=== PATIENT | female | born 1960 | race Caucasian/White ===

== ENCOUNTER 2018-02-10 15:34 | Inpatient (IN) ==
--- NOTE | 2018-02-10 16:05 | ED ---
HPI General Chief complaint: Skin/Abscess/Foreign Body Stated complaint: Lft hand swollen x3 days Time Seen by Provider: 02/10/18 15:48 Source: patient Mode of arrival: ambulatory Limitations: no limitations History of Present Illness HPI narrative: 57-year-old female complains of pain swelling and redness in the right hand. Patient status post trigger finger surgery and right elbow surgery on January [address] Hughes. Patient started having redness swelling and tenderness on the right hand 2 days ago. Patient states the redness swelling get worse and extended to the dorsal aspect the right hand since then. Patient was seen by Dr. Hughes this afternoon and advised to go to the emergency room to be admitted and have an MRI done and IV antibiotic. Patient has history of hypothyroidism and status post CVA. Patient is on Plavix. Last dose of Plavix was yesterday. complaint: Reports abscess/boil Onset (ago): day(s) Tetanus Immunization: <5 Years Location: Reports R hand Severity: moderate Severity scale (1-10): 7 Quality: Reports sharp Pain Consistency: constant Relieving factors: none Exacerbating factors: none Context: Reports none Associated symptoms: Reports denies other symptoms Treatments prior to arrival: Reports none Related Data Home Medications Medication Instructions Recorded Confirmed citalopram 20 mg PO DAILY 02/10/18 02/10/18 clopidogrel 75 mg PO DAILY 02/10/18 02/10/18 gabapentin 300 mg PO TID 02/10/18 02/10/18 levothyroxine 75 mcg PO DAILY 02/10/18 02/10/18 pantoprazole 20 mg PO DAILY 02/10/18 02/10/18 trazodone 100 mg PO DAILY 02/10/18 02/10/18 Allergies Allergy/AdvReac Type Severity Reaction Status Date / Time aspirin Allergy Severe CAUSES A Unverified 02/10/18 15:42 DEEP SLEEP codeine Allergy Severe CAUSES TO Unverified 02/10/18 15:42 DEEP SLEEP penicillin G Allergy Severe Anaphylaxis Unverified 02/10/18 15:42 Review of Systems ROS: all other systems reviewed are negative [facility] Medical History Medical History Fibromyalgia (Acute) GERD (gastroesophageal reflux disease) (Acute) History of CVA (cerebrovascular accident) (Acute) History of trigger finger (Acute) Hx of hysterectomy (Acute) Hypothyroid (Acute) Surgical History Surgical History Hx of section (Acute) Hx of decompression of ulnar nerve (Acute) Social History Social History Substance History: No History of Abuse Smoking Status: Former smoker How Often Do You Have a Drink Containing Alcohol: 2 to 4 times a month Recent Travel in [facility] within the Last 8 Weeks: No Recent Out of Country Travel within the Last 8 Weeks: No Immunization History Tetanus Immunization: <5 Years Exam Narrative Exam Narrative: GENERAL: Well-nourished, well-developed patient. SKIN: Focused skin assessment warm/dry. HEAD: Normocephalic. EYES: No scleral icterus. No injection or drainage. NECK: Supple, trachea midline. No JVD or lymphadenopathy. CARDIOVASCULAR: Regular rate and rhythm without murmurs, gallops, or rubs. RESPIRATORY: Breath sounds equal bilaterally. No accessory muscle use. GASTROINTESTINAL: Abdomen soft, non-tender, nondistended. MUSCULOSKELETAL: No cyanosis, or edema. BACK: Nontender without obvious deformity. No CVA tenderness. Patient has redness swelling tenderness from aspect the hand and dorsal aspect of the right hand. Limited range of motion of the fingers secondary to pain. No induration noted. No discharge. Course Initial Documented Vital Signs Temperature 97.8 F 02/10/18 15:36 Pulse Rate 74 02/10/18 15:36 Respiratory Rate 18 02/10/18 15:36 Blood Pressure 166/85 H 02/10/18 15:36 Pulse Oximetry 94 L 02/10/18 15:36 Last Documented Vital Signs Temperature 97.8 F 02/10/18 15:36 Pulse Rate 72 02/10/18 17:35 Respiratory Rate 16 02/10/18 17:35 Blood Pressure 119/81 02/10/18 17:35 Pulse Oximetry 98 02/10/18 17:35 Sign Out Sign Out Data: Patient Sign Out occurred on 02/10/18 at 16:39. Patient's care was discussed, and care was transferred from Eyad Gay to Sincere Arrington MD. Sign Out Comment: Patient with infected hand. Status post hand surgery a month ago. Patient is signed out to incoming physician. Last updated by Eyad Gay MD at 02/10/18 16:10 Post-Handoff Eval: This case is checked out to me by Dr. Hardy at 4 PM. I have evaluated the patient. She has for pain medicine and we gave her a dose of morphine and Zofran. Her labs are reviewed C-reactive protein a bit elevated but general blood counts are okay. MRI has been done but still not read. I discussed it with the hand surgeon and primary physician Dr. Antony Jones. Dr. Antony Jones will admit. Medical Decision Making MDM Narrative Medical decision making narrative: 57-year-old female with redness swelling tenderness right hand. Status post right hand surgery a month ago. Medical Screen Exam Complete: Yes Emergency Medical Condition: Yes Differential Diagnosis Differential Diagnosis: Differential diagnosis including cellulitis, abscess, tenosynovitis. Lab Data Result diagrams: 02/10/18 16:00 02/10/18 16:40 Lab Results 02/10/18 02/10/18 02/10/18 Range/Units 16:00 16:00 16:10 CBC w Diff Auto diff final WBC 10.2 (4.0-11.0) th/mm3 RBC 4.51 (4.00-5.30) mil/mm3 Hgb 14.1 (11.6-15.3) gm/dL Hct 41.4 (35.0-46.0) % MCV 91.7 (80.0-100.0) fL MCH 31.1 (27.0-34.0) pg MCHC 34.0 (32.0-36.0) % RDW 12.2 (11.6-17.2) % Plt Count 230 (150-450) th/mm3 MPV 7.7 (7.0-11.0) fL Neut % (Auto) 78.5 H (16.0-70.0) % Lymph % (Auto) 15.4 (9.0-44.0) % [place] % (Auto) 4.2 (0.0-8.0) % Eos % (Auto) 1.0 (0.0-4.0) % Baso % (Auto) 0.9 (0.0-2.0) % Neut # (Auto) 8.0 H (1.8-7.7) th/mm3 Lymph # (Auto) 1.6 (1.0-4.8) th/mm3 [place] # (Auto) 0.4 (0.0-0.9) th/mm3 Eos # (Auto) 0.1 (0.0-0.4) th/mm3 Baso # (Auto) 0.1 (0.0-0.2) th/mm3 WBC Differential . Differential Comment . PT 10.0 (9.8-11.6) sec INR 1.0 Ratio APTT 29.2 (23.4-31.7) sec Sodium (136-145) meq/L Potassium (3.5-5.1) meq/L Chloride (98-107) meq/L Carbon Dioxide (21.0-32.0) meq/L Anion Gap (5-15) meq/L BUN (7-18) mg/dL Creatinine (0.50-1.00) mg/dL Estimated GFR (>89) mL/min Random Glucose (74-106) mg/dL Calcium (8.5-10.1) mg/dL C-Reactive Protein (0.00-0.30) mg/dL Urine Color Yellow (Yellw/Straw) Urine Clarity Cloudy H (Clear) Urine pH 6.5 (5.0-8.5) Ur Specific [place] 1.015 (1.002-1.035) Urine Protein Negative (Neg-Trace) mg/dL Urine Glucose (UA) Negative (Negative) mg/dL Urine Ketones Trace H (Negative) mg/dL Urine Occult Blood Small H (Negative) Urine Nitrate Negative (Negative) Urine Bilirubin Negative (Negative) Urine Urobilinogen 1.0 (Less than 2) mg/dL Ur Leukocyte Esterase Large H (Negative) Urine RBC 4-15 H (0-3) /hpf Urine WBC 9-20 H (0-5) /hpf Ur Squamous Epith Cells 0-5 (0-5) /hpf Amorphous Sediment Few H (None) /hpf Urine Bacteria Moderate H (None) /hpf Urine Mucus Few H (Occasional) /lpf Micro UA Comment Cath-culture ind Ur Microscopic Review Microscopic reviewed Urine Culture Comments Cath-cult indicated 02/10/18 02/10/18 Range/Units 16:40 16:40 CBC w Diff WBC (4.0-11.0) th/mm3 RBC (4.00-5.30) mil/mm3 Hgb (11.6-15.3) gm/dL Hct (35.0-46.0) % MCV (80.0-100.0) fL MCH (27.0-34.0) pg MCHC (32.0-36.0) % RDW (11.6-17.2) % Plt Count (150-450) th/mm3 MPV (7.0-11.0) fL Neut % (Auto) (16.0-70.0) % Lymph % (Auto) (9.0-44.0) % [place] % (Auto) (0.0-8.0) % Eos % (Auto) (0.0-4.0) % Baso % (Auto) (0.0-2.0) % Neut # (Auto) (1.8-7.7) th/mm3 Lymph # (Auto) (1.0-4.8) th/mm3 [place] # (Auto) (0.0-0.9) th/mm3 Eos # (Auto) (0.0-0.4) th/mm3 Baso # (Auto) (0.0-0.2) th/mm3 WBC Differential Differential Comment PT (9.8-11.6) sec INR Ratio APTT (23.4-31.7) sec Sodium 141 (136-145) meq/L Potassium 3.6 (3.5-5.1) meq/L Chloride 111 H (98-107) meq/L Carbon Dioxide 23.8 (21.0-32.0) meq/L Anion Gap 6 (5-15) meq/L BUN 8 (7-18) mg/dL Creatinine 0.71 (0.50-1.00) mg/dL Estimated GFR 85 L (>89) mL/min Random Glucose 87 (74-106) mg/dL Calcium 8.0 L (8.5-10.1) mg/dL C-Reactive Protein 1.48 H (0.00-0.30) mg/dL Urine Color (Yellw/Straw) Urine Clarity (Clear) Urine pH (5.0-8.5) Ur Specific [place] (1.002-1.035) Urine Protein (Neg-Trace) mg/dL Urine Glucose (UA) (Negative) mg/dL Urine Ketones (Negative) mg/dL Urine Occult Blood (Negative) Urine Nitrate (Negative) Urine Bilirubin (Negative) Urine Urobilinogen (Less than 2) mg/dL Ur Leukocyte Esterase (Negative) Urine RBC (0-3) /hpf Urine WBC (0-5) /hpf Ur Squamous Epith Cells (0-5) /hpf Amorphous Sediment (None) /hpf Urine Bacteria (None) /hpf Urine Mucus (Occasional) /lpf Micro UA Comment Ur Microscopic Review Urine Culture Comments Discharge Plan Physicians Team ED Provider: Sincere Arrington Primary Care Provider: Nidia Edward Rxs /Orders / Referrals /Forms Prescriptions: No Action clopidogrel 75 mg Tablet 75 mg PO DAILY RF: 0 pantoprazole 20 mg Tablet,Delayed Release (Dr/Ec) 20 mg PO DAILY RF: 0 levothyroxine 75 mcg Tablet 75 mcg PO DAILY RF: 0 citalopram 20 mg Tablet 20 mg PO DAILY RF: 0 trazodone 100 mg Tablet 100 mg PO DAILY RF: 0 gabapentin 300 mg Capsule 300 mg PO TID RF: 0 Discharge Interventions Interventions: Vital Signs Last Done: 02/10/18 17:35 Status ED Status: Admitted Patient
[2018-02-10 16:09] LABS: Baso # (Auto) 0.1 th/mm3 (0.0-0.2); Baso % (Auto) 0.9 % (0.0-2.0); Eos # (Auto) 0.1 th/mm3 (0.0-0.4); Hematocrit 41.4 % (35.0-46.0); Hemoglobin 14.1 gm/dL (11.6-15.3); Lymph # (Auto) 1.6 th/mm3 (1.0-4.8); Lymph % (Auto) 15.4 % (9.0-44.0); Mean Corpuscular Hemoglobin 31.1 pg (27.0-34.0); Mean Corpuscular Volume 91.7 fL (80.0-100.0); Mean Platelet Volume 7.7 fL (7.0-11.0); Mono # (Auto) 0.4 th/mm3 (0.0-0.9); Mono % (Auto) 4.2 % (0.0-8.0); Neut % (Auto) 78.5 % (16.0-70.0); Platelet Count 230 th/mm3 (150-450); Red Blood Count 4.51 mil/mm3 (4.00-5.30); Red Cell Distribution Width 12.2 % (11.6-17.2); White Blood Count 10.2 th/mm3 (4.0-11.0)
[2018-02-10 16:15] LABS: Bilirubin,Urine Negative (Negative); Clarity,Urine Cloudy (Clear); Color,Urine Yellow (Yellw/Straw); Glucose,Urine (UA) Negative (Negative); Leukocyte Esterase,Urine Large (Negative); Nitrite,Urine Negative (Negative); PH,Urine 6.5 (5.0-8.5); Specific Gravity,Urine 1.015 (1.002-1.035)
[2018-02-10 16:22] LABS: Amorphous Sediment,Urine Few /hpf; Bacteria,Urine Moderate /hpf; Mucus,Urine Few /lpf (Occasional); Squamous Epithelial Cell,Urine 0-5 /hpf (0-5)
[2018-02-10 16:22] LABS: Activated Partial Thrombo Time 29.2 sec (23.4-31.7)
[2018-02-10 17:07] LABS: Carbon Dioxide 23.8 meq/L (21.0-32.0); Potassium 3.6 meq/L (3.5-5.1)
[2018-02-10] MEDS ORDERED: Gadobutrol PF 10 MMOL/10 ML Vial (for RAD) IV.SIG ONE (17:27)
[2018-02-10] MEDS ORDERED: Morphine Inj 4 MG/ML Vial IV.PUSH ONE (17:58)
--- NOTE | 2018-02-10 19:11 | MR ---
EXAM DATE: 02/10/2018 5:34 PM EST AGE/SEX: 57 years / Female INDICATIONS: . Right hand 2-4 MCPJ swelling and redness post trigger finger release on January 14. CLINICAL DATA: This is the patient's initial encounter. Patient reports that signs and symptoms have been present for 3 weeks and indicates a pain score of 7/10. MEDICAL/SURGICAL HISTORY: Hypothyroidism. section. Hysterectomy. trigger finger relea se, ulnar nerve surgery. COMPARISON: No prior exams available for comparison. TECHNIQUE: Multiplanar, multisequence MRI examination was performed without contrast and after the i ntravenous administration of 10 ml Gadavist (gadobutrol) contrast as a single exam dose. FINDINGS: The osseous structures of the hand are normal alignment and there is normal signal in the marrow of t he metacarpal and phalangeal bones. There is a focal fluid collection along the palm are aspect of the flexor tendon of the third digit m easuring 8 x 4 mm, located anterior to the metacarpal phalangeal joint. There is no enhancement withi n this fluid collection. There is mild enhancement along the palmar aspect of the tendon sheath of th e third digit flexor tendon as well. The soft tissues about the tendon sheath of the second and fourt h digit is normal without focal thickening or fluid. There is some mild induration of the soft tissue s of the palm are third and fourth digits with some mild enhancement, characteristic of postsurgical changes. CONCLUSION: 1. 8 x 4 mm fluid collection adjacent to the palmar aspect of the flexor tendon sheath of the third digit at the level of the MCP joint. 2. Mild edema about the palm of the second through fourth digit, expected postsurgical findings. Electronically signed by: Demar Pascual MD 02/10/2018 7:09 PM EST
[2018-02-10] MEDS ORDERED: Vancomycin Consult Pharmacy OTHER PRN (19:26)
--- NOTE | 2018-02-10 19:45 | P.HP ---
History of Present Illness Service: [facility] hospitalist service Primary Care Physician: Nidia Edward MD Chief Complaint: Right hand pain and swelling History of Present Illness: 57-year-old white female who had a trigger finger release on her right hand involving the middle finger at the MCP joint on January [address] Hughes. She was doing well until about 2 days ago when she started getting swelling and tenderness on the volar aspect of the hand at the base of the third finger that has increased since then the redness has extended over to the dorsal aspect of the right hand also near the second and third finger base. She was seen by Dr. Hughes this afternoon and advised to go the emergency room for admission for IV antibiotic therapy and an MRI of the hand. She is admitted to the [facility] hospitalist service with Dr. Hughes to consult. Medical history: Fibromyalgia Hypothyroidism Depression Gastroesophageal reflux disease Prior history of stroke about 10 years ago No heart disease, diabetes mellitus, liver disease, kidney disease, peptic ulcer disease, colon disease. She was treated for hypertension until about 5 months ago she was taken off of blood pressure medicine after she had lost about 30 pounds. No lung disease Surgical history: She had the right middle finger trigger release on 01/14/2018 of the right hand She had a right ulnar nerve decompression by Dr. Hughes on 01/14/2019 x3 BETO and BSO allergies aspirin, codeine, penicillin G (anaphylaxis) Medications: Citalopram 20 mg daily Clopidogrel 75 mg daily Gabapentin 300 mg Levothyroxine 75 mcg daily Pantoprazole 20 mg daily Trazodone 100 mg at bedtime for sleep Family history: Her mother is still living at 85 and has hypothyroidism Her dad at 74 he had COPD and congestive heart failure Social history: She quit smoking about 10 years ago and smoked only a pack a week times 15 years. 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 This includes certification that hospital inpatient services are reasonable and necessary and in the case of services not specified as inpatient-only under 42 CFR 419.22(n), that they are appropriately provided as inpatient services in accordance to with the 2-midnight benchmark under 43 CFR 412.3(e) Review of Systems Review of systems: General: No fever, chills, sweats. HEENT: No sore throat, runny nose, earache. Cardiovascular: No chest pain, heart palpitations, shortness of breath, orthopnea. Pulmonary: No cough, shortness of breath, hemoptysis, pleuritic chest pain Gastrointestinal: No nausea, vomiting, abdominal pain, heartburn, indigestion, diarrhea, constipation, melena, rectal bleeding. : No dysuria, hematuria, urgency, frequency, incontinence. Musculoskeletal: Negative Psychiatry: No significant anxiety or depression Extremities: She has had the swelling, redness and pain of the right hand as mentioned. Dermatology: No rash or itching Neuro: No headache, confusion, motor weakness, PMFSH - History History Provided By: Patient - Medical History Medical History: Medical History (Last Reviewed 02/10/18 @ 16:02 by Eyad Gay MD) Fibromyalgia GERD (gastroesophageal reflux disease) History of CVA (cerebrovascular accident) History of trigger finger Hx of hysterectomy Hypothyroid - Surgical History Surgical History: Surgical History (Last Reviewed 02/10/18 @ 16:02 by Eyad aGy MD) Hx of section Hx of decompression of ulnar nerve - Tobacco History Smoking Status: Former smoker - Alcohol History How Often Do You Have a Drink Containing Alcohol: 2 to 4 times a month - Substance Use History Substance History: No History of Abuse - Travel History Recent Travel in the [place] Within the Last 8 Weeks: No Recent Travel Out of the Country Within the Last 8 Weeks: No - Immunization History Tetanus Immunization: <5 Years Medications and Allergies Active Medications: Active Medications Citalopram Hydrobromide (Celexa) 20 mg PO DAILY KEVIN Clopidogrel Bisulfate (Plavix) 75 mg PO DAILY KEVIN Gabapentin (Neurontin) 300 mg PO TID KEVIN Levothyroxine Sodium (Synthroid) 75 mcg PO DAILY KEVIN Pantoprazole Sodium (Protonix) 20 mg PO DAILY KEVIN Pharmacy Profile Note (Vancomycin Consult Pharmacy) 1 each OTHER UNSCH PRN PRN Reason: Pharmacy to dose Trazodone HCl (Desyrel) 100 mg PO DAILY KEVIN Allergies Allergy/AdvReac Type Severity Reaction Status Date / Time aspirin Allergy Severe CAUSES A Unverified 02/10/18 15:42 DEEP SLEEP codeine Allergy Severe CAUSES TO Unverified 02/10/18 15:42 DEEP SLEEP penicillin G Allergy Severe Anaphylaxis Unverified 02/10/18 15:42 Home Medications Medication Instructions Recorded Confirmed Type citalopram 20 mg PO DAILY 02/10/18 02/10/18 History clopidogrel 75 mg PO DAILY 02/10/18 02/10/18 History gabapentin 300 mg PO TID 02/10/18 02/10/18 History levothyroxine 75 mcg PO DAILY 02/10/18 02/10/18 History pantoprazole 20 mg PO DAILY 02/10/18 02/10/18 History trazodone 100 mg PO DAILY 02/10/18 02/10/18 History Exam Vital signs: Vital Signs 02/10/18 15:36 02/10/18 17:35 Temperature 97.8 F Pulse Rate 74 72 Respiratory Rate 18 16 Blood Pressure 166/85 H 119/81 Pulse Oximetry 94 L 98 Intake & Output 02/10/18 02/10/18 02/11/18 06:59 18:59 06:59 Weight 108.2 kg Narrative: Physical exam: This is a pleasant pleasant white female in no distress. HEENT: Pupils equal, EOMs intact, sclera nonicteric, mouth without lesions, TMs intact, nose without lesions Neck: No JVD, neck is supple, no carotid bruit Heart: Regular rate and rhythm without murmurs or gallops Lungs: Clear to auscultation Abdomen: Soft, nontender, no masses, no organomegaly Extremities: No edema, pulses palpated and 2 + in the feet, no calf tenderness. She has some tenderness, swelling, and redness of the right hand on the volar aspect at the base of the second third and fourth fingers and also some redness overlying dorsal aspect of the MCP joint region of the second and third finger of the right hand as well. There is discomfort with motion of her second, third , and fourth fingers of the right hand Skin: Without lesions or rash Neuro: Alert, oriented, normal motor exam, sensation intact, cranial nerves intact Results - Labs CBC & Chem 7: 02/10/18 16:00 02/10/18 16:40 Labs: Laboratory Results - last 24 hr 02/10/18 02/10/18 02/10/18 16:00 16:00 16:10 CBC w Diff Auto diff final WBC 10.2 RBC 4.51 Hgb 14.1 Hct 41.4 MCV 91.7 MCH 31.1 MCHC 34.0 RDW 12.2 Plt Count 230 MPV 7.7 Neut % (Auto) 78.5 H Lymph % (Auto) 15.4 [place] % (Auto) 4.2 Eos % (Auto) 1.0 Baso % (Auto) 0.9 Neut # (Auto) 8.0 H Lymph # (Auto) 1.6 [place] # (Auto) 0.4 Eos # (Auto) 0.1 Baso # (Auto) 0.1 WBC Differential . Differential Comment . PT 10.0 INR 1.0 APTT 29.2 Sodium Potassium Chloride Carbon Dioxide Anion Gap BUN Creatinine Estimated GFR Random Glucose Calcium C-Reactive Protein Urine Color Yellow Urine Clarity Cloudy H Urine pH 6.5 Ur Specific [place] 1.015 Urine Protein Negative Urine Glucose (UA) Negative Urine Ketones Trace H Urine Occult Blood Small H Urine Nitrate Negative Urine Bilirubin Negative Urine Urobilinogen 1.0 Ur Leukocyte Esterase Large H Urine RBC 4-15 H Urine WBC 9-20 H Ur Squamous Epith Cells 0-5 Amorphous Sediment Few H Urine Bacteria Moderate H Urine Mucus Few H Micro UA Comment Cath-culture ind Ur Microscopic Review Microscopic reviewed Urine Culture Comments Cath-cult indicated 02/10/18 02/10/18 16:40 16:40 CBC w Diff WBC RBC Hgb Hct MCV MCH MCHC RDW Plt Count MPV Neut % (Auto) Lymph % (Auto) [place] % (Auto) Eos % (Auto) Baso % (Auto) Neut # (Auto) Lymph # (Auto) [place] # (Auto) Eos # (Auto) Baso # (Auto) WBC Differential Differential Comment PT INR APTT Sodium 141 Potassium 3.6 Chloride 111 H Carbon Dioxide 23.8 Anion Gap 6 BUN 8 Creatinine 0.71 Estimated GFR 85 L Random Glucose 87 Calcium 8.0 L C-Reactive Protein 1.48 H Urine Color Urine Clarity Urine pH Ur Specific [place] Urine Protein Urine Glucose (UA) Urine Ketones Urine Occult Blood Urine Nitrate Urine Bilirubin Urine Urobilinogen Ur Leukocyte Esterase Urine RBC Urine WBC Ur Squamous Epith Cells Amorphous Sediment Urine Bacteria Urine Mucus Micro UA Comment Ur Microscopic Review Urine Culture Comments - Imaging Impressions Hand MRI 02/10/18 15:55 CONCLUSION: 1. 8 x 4 mm fluid collection adjacent to the palmar aspect of the flexor tendon sheath of the third digit at the level of the MCP joint. 2. Mild edema about the palm of the second through fourth digit, expected postsurgical findings. Caprini VTE Risk Assessment Caprini VTE Risk Assessment: No/Low Risk (score <= 1) Caprini Risk Assessment Model: Point Value = 1 Point Value = 2 Point Value = 3 Point Value = 5 Age 41-60 Minor surgery BMI > 25 kg/m2 Swollen legs Varicose veins or History of unexplained or recurrent spontaneous Oral contraceptives or hormone replacement Sepsis (< 1 month) Serious lung disease, including pneumonia (< 1 month) Abnormal pulmonary function Acute myocardial infarction Congestive heart failure (< 1 month) History of inflammatory bowel disease Medical patient at bed rest Age 61-74 Arthroscopic surgery Major open surgery (> 45 min) Laparoscopic surgery (> 45 min) Malignancy Confined to bed (> 72 hours) Immobilizing plaster cast Central venous access Age >= 75 History of VTE Family history of VTE Factor V Leiden Prothrombin [id number] Lupus anticoagulant Anticardiolipin antibodies Elevated serum homocysteine Heparin-induced thrombocytopenia Other congenital or acquired thrombophilia Stroke (< 1 month) Elective arthroplasty Hip, pelvis, or leg fracture Acute spinal cord injury (< 1 month) Prophylaxis Regimen: Total Risk Factor Score Risk Level Prophylaxis Regimen 0-1 Low Early ambulation 2 Moderate Order ONE of the following: *Sequential Compression Device (SCD) *Heparin 5000 units SQ BID 3-4 Higher Order ONE of the following medications: *Heparin 5000 units SQ TID *Enoxaparin/Lovenox 40 mg SQ daily (WT < 150 kg, CrCl > 30 mL/min) *Enoxaparin/Lovenox 30 mg SQ daily (WT < 150 kg, CrCl > 10-29 mL/min) *Enoxaparin/Lovenox 30 mg SQ BID (WT < 150 kg, CrCl > 30 mL/min) AND/OR *Sequential Compression Device (SCD) 5 or more Highest Order ONE of the following medications: *Heparin 5000 units SQ TID (Preferred with Epidurals) *Enoxaparin/Lovenox 40 mg SQ daily (WT < 150 kg, CrCl > 30 mL/min) *Enoxaparin/Lovenox 30 mg SQ daily (WT < 150 kg, CrCl > 10-29 mL/min) *Enoxaparin/Lovenox 30 mg SQ BID (WT < 150 kg, CrCl > 30 mL/min) AND *Sequential Compression Device (SCD) Assessment and Plan - Assessment (1) Infection of right hand Code(s): L08.9 - Local infection of the skin and subcutaneous tissue, unspecified Status: Acute (2) Hypothyroidism Code(s): E03.9 - Hypothyroidism, unspecified Status: Acute (3) Fibromyalgia Code(s): M79.7 - Fibromyalgia Status: Acute (4) GERD (gastroesophageal reflux disease) Code(s): K21.9 - Gastro-esophageal reflux disease without esophagitis Status: Acute (5) Depression Code(s): F32.9 - Major depressive disorder, single episode, unspecified Status : Acute - Plan Plan: We will start her on vancomycin IV. Dr. Hughes is a hand surgeon will seeing her and reviewing her MRI results. Any surgical intervention will be as per her recommendations. We will just give her HUBER hose to wear but she can ambulate also. She will be maintained on her regular medications from home. Her urinalysis did show some red blood cells and white blood cells and a culture was indicated so we will await culture results.
--- NOTE | 2018-02-10 19:54 | P.PNOP ---
Physical Exam Vital signs: Vital Signs 02/10/18 15:36 02/10/18 17:35 Temperature 97.8 F Pulse Rate 74 72 Respiratory Rate 18 16 Blood Pressure 166/85 H 119/81 Pulse Oximetry 94 L 98 Intake & Output 02/10/18 02/10/18 02/11/18 06:59 18:59 06:59 Weight 108.2 kg Results - Labs CBC & Chem 7: 02/10/18 16:00 02/10/18 16:40 Laboratory Results - last 24 hr 02/10/18 02/10/18 02/10/18 16:00 16:00 16:10 CBC w Diff Auto diff final WBC 10.2 RBC 4.51 Hgb 14.1 Hct 41.4 MCV 91.7 MCH 31.1 MCHC 34.0 RDW 12.2 Plt Count 230 MPV 7.7 Neut % (Auto) 78.5 H Lymph % (Auto) 15.4 [place] % (Auto) 4.2 Eos % (Auto) 1.0 Baso % (Auto) 0.9 Neut # (Auto) 8.0 H Lymph # (Auto) 1.6 [place] # (Auto) 0.4 Eos # (Auto) 0.1 Baso # (Auto) 0.1 WBC Differential . Differential Comment . PT 10.0 INR 1.0 APTT 29.2 Sodium Potassium Chloride Carbon Dioxide Anion Gap BUN Creatinine Estimated GFR Random Glucose Calcium C-Reactive Protein Urine Color Yellow Urine Clarity Cloudy H Urine pH 6.5 Ur Specific [place] 1.015 Urine Protein Negative Urine Glucose (UA) Negative Urine Ketones Trace H Urine Occult Blood Small H Urine Nitrate Negative Urine Bilirubin Negative Urine Urobilinogen 1.0 Ur Leukocyte Esterase Large H Urine RBC 4-15 H Urine WBC 9-20 H Ur Squamous Epith Cells 0-5 Amorphous Sediment Few H Urine Bacteria Moderate H Urine Mucus Few H Micro UA Comment Cath-culture ind Ur Microscopic Review Microscopic reviewed Urine Culture Comments Cath-cult indicated 02/10/18 02/10/18 16:40 16:40 CBC w Diff WBC RBC Hgb Hct MCV MCH MCHC RDW Plt Count MPV Neut % (Auto) Lymph % (Auto) [place] % (Auto) Eos % (Auto) Baso % (Auto) Neut # (Auto) Lymph # (Auto) [place] # (Auto) Eos # (Auto) Baso # (Auto) WBC Differential Differential Comment PT INR APTT Sodium 141 Potassium 3.6 Chloride 111 H Carbon Dioxide 23.8 Anion Gap 6 BUN 8 Creatinine 0.71 Estimated GFR 85 L Random Glucose 87 Calcium 8.0 L C-Reactive Protein 1.48 H Urine Color Urine Clarity Urine pH Ur Specific [place] Urine Protein Urine Glucose (UA) Urine Ketones Urine Occult Blood Urine Nitrate Urine Bilirubin Urine Urobilinogen Ur Leukocyte Esterase Urine RBC Urine WBC Ur Squamous Epith Cells Amorphous Sediment Urine Bacteria Urine Mucus Micro UA Comment Ur Microscopic Review Urine Culture Comments - Imaging Impressions Hand MRI 02/10/18 15:55 CONCLUSION: 1. 8 x 4 mm fluid collection adjacent to the palmar aspect of the flexor tendon sheath of the third digit at the level of the MCP joint. 2. Mild edema about the palm of the second through fourth digit, expected postsurgical findings. Assessment and Plan - Assessment and Plan 57yF approximately 4 weeks status post right cubital tunnel release and right middle finger trigger release presented to office today with significant pain and swelling right hand. Recommended patient come to ER for labs and mri. -WBC 10.2, ESR pending, CRP 1.48 -MRI concerning for abscess along flexor tendon sheath with fluid collection. Treatment options discussed with patient including admission on IV antibiotics versus I&D. Patient elects to proceed with I&D and admission on IV Ab. Patient does take Plavix. Patient understands increased risk of stiffness and infection. Plan for OR tonight as patient has been NPO.
[2018-02-10] MEDS ORDERED: Chlorhexidine Gluconate 2% 1 Pack (2 Cloths) TOPICAL ONE (20:31)
[2018-02-10] MEDS ORDERED: Metoprolol Tartrate 25 MG Tablet PO ONE (20:31)
[2018-02-10] MEDS ORDERED: fentaNYL Citrate Inj 100 MCG/2 ML Ampul ONE (20:42)
[2018-02-10] MEDS ORDERED: Lidocaine 2% Inj 50 ML Vial ONE (20:43)
[2018-02-10] MEDS ORDERED: Neomycin/Polymyxin G.U. Irrigant 1 ML Ampul ONE (20:44)
[2018-02-10] MEDS ORDERED: Sodium Chlor 0.9% Inj 500 ML IV.SIG SCH (21:00)
[2018-02-10] MEDS: Vancomycin Inj 1,250 MG in Sodium Chlor 0.9% Inj 250 ML IV.SIG SCH (21:13)
[2018-02-10] MEDS ORDERED: Morphine Inj 4 MG/ML Vial IV.PUSH SCH ×3 (22:01→22:30)
[2018-02-10] MEDS ORDERED: HYDROmorphone PF Inj 2 MG/ML Vial ONE (22:15)
--- NOTE | 2018-02-10 23:00 | MP ---
cc: Radha Hughes MD DATE OF OPERATION: 02/10/2018 PREOPERATIVE DIAGNOSIS: Flexor tenosynovitis right middle finger after prior trigger finger release. POSTOPERATIVE DIAGNOSIS: Flexor tenosynovitis right middle finger after prior trigger finger release. PROCEDURE: Incision and drainage flexor tendon sheath, right middle finger. SURGEON: Radha Hughes MD ANESTHESIA: General and local. TOURNIQUET TIME: 15 minutes at 200 mmHg. SPECIMEN: Culture. INDICATIONS FOR PROCEDURE: Mickie Caro is a patient of mine who underwent right cubital tunnel release and right middle finger trigger release on 01/14/2018. The patient was doing well. She states that this Saturday on 02/08/2018 she noted pain and swelling of the right middle finger. She did not call the office until this morning. Upon evaluation in the office, there was significant pain and swelling over the right middle finger flexor tendon sheath. I recommended the patient come to the emergency room for evaluation. Lab work showed elevated ESR and CRP. MRI concerning for flexor tenosynovitis. The patient elected to proceed with surgical intervention. Risks were explained, which include, but are not limited to wound complications, infection, sepsis, stiffness, pain, need for additional surgeries and she elected to proceed. DESCRIPTION OF PROCEDURE: The patient was identified in the preoperative holding and the correct extremity was marked. The patient was taken to the operating room where anesthesia was induced. The right upper extremity was prepped and draped in normal sterile fashion. The prior incision was extended proximally and distally. Upon making the incision, there was purulence along the flexor tendon sheath. This was debrided with antibiotic saline and rongeurs. The A1 naty had been released. Tourniquet was released. Hemostasis was obtained. Wound was closed with nylon. There was less than 2-second capillary refill to the finger. Cultures were sent. We will follow the cultures. The patient remained admitted on IV antibiotics. She will work on gentle range of motion. She will likely be in the hospital for several days. Radha Hughes MD [facility]/raegan , 10:10 PM , 10:16 PM BRADEN
--- NOTE | 2018-02-10 23:01 | P.PNOP ---
Physical Exam Vital signs: Vital Signs 02/10/18 15:36 02/10/18 17:35 02/10/18 20:36 Temperature 97.8 F 98.3 F Pulse Rate 74 72 74 Respiratory Rate 18 16 20 Blood Pressure 166/85 H 119/81 135/81 Pulse Oximetry 94 L 98 95 02/10/18 20:44 02/10/18 21:45 02/10/18 22:00 Temperature 98.3 F 98.1 F Pulse Rate 78 83 82 Respiratory Rate 18 18 18 Blood Pressure 135/81 123/85 112/67 Pulse Oximetry 93 L 98 02/10/18 22:15 02/10/18 22:30 Temperature Pulse Rate 74 78 Respiratory Rate 20 20 Blood Pressure 127/72 110/51 L Pulse Oximetry 96 98 Intake & Output 02/10/18 02/10/18 02/11/18 06:59 18:59 06:59 Intake Total 262.5 / 262.5 Balance 262.5 / 262.5 Weight 108.2 kg Intake: IV 262.5 / 262.5 Vancomycin Inj 1,250 MG In NS 262.5 / 262.5 Inj 250 ML @ 250 mls/hr IV.SIG Q12H [facility] Rx#:[id number] Results - Labs CBC & Chem 7: 02/10/18 16:00 02/10/18 16:40 Laboratory Results - last 24 hr 02/10/18 02/10/18 02/10/18 16:00 16:00 16:00 CBC w Diff Auto diff final WBC 10.2 RBC 4.51 Hgb 14.1 Hct 41.4 MCV 91.7 MCH 31.1 MCHC 34.0 RDW 12.2 Plt Count 230 MPV 7.7 Neut % (Auto) 78.5 H Lymph % (Auto) 15.4 [place] % (Auto) 4.2 Eos % (Auto) 1.0 Baso % (Auto) 0.9 Neut # (Auto) 8.0 H Lymph # (Auto) 1.6 [place] # (Auto) 0.4 Eos # (Auto) 0.1 Baso # (Auto) 0.1 WBC Differential . Differential Comment . ESR 17 PT 10.0 INR 1.0 APTT 29.2 Sodium Potassium Chloride Carbon Dioxide Anion Gap BUN Creatinine Estimated GFR POC Glucose Random Glucose Calcium C-Reactive Protein Urine Color Urine Clarity Urine pH Ur Specific [place] Urine Protein Urine Glucose (UA) Urine Ketones Urine Occult Blood Urine Nitrate Urine Bilirubin Urine Urobilinogen Ur Leukocyte Esterase Urine RBC Urine WBC Ur Squamous Epith Cells Amorphous Sediment Urine Bacteria Urine Mucus Micro UA Comment Ur Microscopic Review Urine Culture Comments 02/10/18 02/10/18 02/10/18 16:10 16:40 16:40 CBC w Diff WBC RBC Hgb Hct MCV MCH MCHC RDW Plt Count MPV Neut % (Auto) Lymph % (Auto) [place] % (Auto) Eos % (Auto) Baso % (Auto) Neut # (Auto) Lymph # (Auto) [place] # (Auto) Eos # (Auto) Baso # (Auto) WBC Differential Differential Comment ESR PT INR APTT Sodium 141 Potassium 3.6 Chloride 111 H Carbon Dioxide 23.8 Anion Gap 6 BUN 8 Creatinine 0.71 Estimated GFR 85 L POC Glucose Random Glucose 87 Calcium 8.0 L C-Reactive Protein 1.48 H Urine Color Yellow Urine Clarity Cloudy H Urine pH 6.5 Ur Specific [place] 1.015 Urine Protein Negative Urine Glucose (UA) Negative Urine Ketones Trace H Urine Occult Blood Small H Urine Nitrate Negative Urine Bilirubin Negative Urine Urobilinogen 1.0 Ur Leukocyte Esterase Large H Urine RBC 4-15 H Urine WBC 9-20 H Ur Squamous Epith Cells 0-5 Amorphous Sediment Few H Urine Bacteria Moderate H Urine Mucus Few H Micro UA Comment Cath-culture ind Ur Microscopic Review Microscopic reviewed Urine Culture Comments Cath-cult indicated 02/10/18 22:43 CBC w Diff WBC RBC Hgb Hct MCV MCH MCHC RDW Plt Count MPV Neut % (Auto) Lymph % (Auto) [place] % (Auto) Eos % (Auto) Baso % (Auto) Neut # (Auto) Lymph # (Auto) [place] # (Auto) Eos # (Auto) Baso # (Auto) WBC Differential Differential Comment ESR PT INR APTT Sodium Potassium Chloride Carbon Dioxide Anion Gap BUN Creatinine Estimated GFR POC Glucose 104 Random Glucose Calcium C-Reactive Protein Urine Color Urine Clarity Urine pH Ur Specific [place] Urine Protein Urine Glucose (UA) Urine Ketones Urine Occult Blood Urine Nitrate Urine Bilirubin Urine Urobilinogen Ur Leukocyte Esterase Urine RBC Urine WBC Ur Squamous Epith Cells Amorphous Sediment Urine Bacteria Urine Mucus Micro UA Comment Ur Microscopic Review Urine Culture Comments - Imaging Impressions Hand MRI 02/10/18 15:55 CONCLUSION: 1. 8 x 4 mm fluid collection adjacent to the palmar aspect of the flexor tendon sheath of the third digit at the level of the MCP joint. 2. Mild edema about the palm of the second through fourth digit, expected postsurgical findings. Assessment and Plan - Assessment and Plan 57yF approximately 4 weeks status post right cubital tunnel release and right middle finger trigger release presented to office today with significant pain and swelling right hand. MRI at hospital concerning for abscess right middle finger flexor tendon sheath Now POD0 s/p I&D right middle finger flexor tendon sheath -Purulence intraop involving the flexor tendon sheath, follow cultures and ID recs. Patient will likely need to stay in the hospital for 3 days while cultures result -Elevate right hand and gentle ROM -Likely followup in office 02/17
[2018-02-11] MEDS: traZODone 100 MG Tablet PO SCH ×3 (00:47→20:19)
[2018-02-11 06:06] LABS: Baso % (Auto) 0.5 % (0.0-2.0); Eos % (Auto) 0.4 % (0.0-4.0); Hematocrit 38.7 % (35.0-46.0); Hemoglobin 13.2 gm/dL (11.6-15.3); Lymph # (Auto) 1.3 th/mm3 (1.0-4.8); Lymph % (Auto) 13.6 % (9.0-44.0); Mean Corpuscular HGB Conc 34.1 % (32.0-36.0); Mean Corpuscular Hemoglobin 31.7 pg (27.0-34.0); Mean Platelet Volume 7.3 fL (7.0-11.0); Mono # (Auto) 0.6 th/mm3 (0.0-0.9); Neut # (Auto) 7.5 th/mm3 (1.8-7.7); Neut % (Auto) 79.5 % (16.0-70.0); Platelet Count 225 th/mm3 (150-450); Red Blood Count 4.17 mil/mm3 (4.00-5.30); Red Cell Distribution Width 12.5 % (11.6-17.2); White Blood Count 9.4 th/mm3 (4.0-11.0)
[2018-02-11 06:11] LABS: Potassium 4.1 meq/L (3.5-5.1)
[2018-02-11 06:14] LABS: Calcium 8.2 mg/dL (8.5-10.1)
[2018-02-11 06:15] LABS: Carbon Dioxide 29.7 meq/L (21.0-32.0)
[2018-02-11] MEDS ORDERED: Acetaminophen 325 MG Tablet PO ONE (06:30)
[2018-02-11] MEDS ORDERED: Levothyroxine 75 MCG Tablet PO SCH (09:00)
[2018-02-11] MEDS ORDERED: Citalopram 20 MG Tablet PO SCH (09:00)
[2018-02-11] MEDS ORDERED: Gabapentin 300 MG Capsule PO SCH (09:00)
[2018-02-11] MEDS: Pantoprazole Sodium 20 MG DR Tablet PO SCH (09:09)
[2018-02-11] MEDS: Vancomycin Inj 1,250 MG in Sodium Chlor 0.9% Inj 250 ML IV.SIG SCH ×2 (09:28→20:22)
--- NOTE | 2018-02-11 10:33 | P.PN ---
Subjective Interval history: Patient is a 57-year-old white female who had right cubital tunnel release right middle finger trigger release who developed pain and swelling there was sent to the hospital for MRI and further workup by Dr. Hughes orthopedic hand surgery and found an 8 x 4 fluid the palmar aspect the flexor tendon sheath third digit MCP joint . Patient was taken to the OR fluid was aspirated cultures were sent she is on vancomycin pending results of culture. Infectious disease has been consulted as well. Of note she had suggestive of UTI on her urine cultures are pending on that. He has had some pain in that area and she was started on tramadol today. Physical Exam Vital signs: Vital Signs 02/10/18 15:36 02/10/18 17:35 02/10/18 20:36 Temperature 97.8 F 98.3 F Pulse Rate 74 72 74 Respiratory Rate 18 16 20 Blood Pressure 166/85 H 119/81 135/81 Pulse Oximetry 94 L 98 95 02/10/18 20:44 02/10/18 21:45 02/10/18 22:00 Temperature 98.3 F 98.1 F Pulse Rate 78 83 82 Respiratory Rate 18 18 18 Blood Pressure 135/81 123/85 112/67 Pulse Oximetry 93 L 98 02/10/18 22:15 02/10/18 22:30 02/10/18 22:43 Temperature Pulse Rate 74 78 78 Respiratory Rate 20 20 Blood Pressure 127/72 110/51 L Pulse Oximetry 96 98 98 02/10/18 23:05 02/11/18 00:00 02/11/18 08:00 Temperature 98.3 F 98.3 F 99.5 F Pulse Rate 88 91 H 101 H Respiratory Rate 16 16 16 Blood Pressure 97/55 L 97/55 L 87/49 L Pulse Oximetry 88 L 87 L 95 Intake & Output 02/10/18 02/11/18 02/11/18 18:59 06:59 18:59 Intake Total 1362.5 / 1362.5 Balance 1362.5 / 1362.5 Weight 108.2 kg 110.9 kg Intake: IV 1062.5 / 1062.5 LR 1000 mL Inj 1,000 ML @ 30 800 / 800 mls/hr IV.SIG .Q24H [facility] Rx#: [id number] Vancomycin Inj 1,250 MG In NS 262.5 / 262.5 Inj 250 ML @ 250 mls/hr IV.SIG Q12H [facility] Rx#:[id number] Other 300 / 300 Other: Other Intake Source Saline Solution # Voids 1 Date of Last Bowel Movement 02/09/18 Weight On Admission 110.9 kg Narrative: Physical exam: This is a pleasant pleasant white female in no distress. HEENT: Pupils equal, EOMs intact, sclera nonicteric, mouth without lesions, TMs intact, nose without lesions Neck: No JVD, neck is supple, no carotid bruit Heart: Regular rate and rhythm without murmurs or gallops Lungs: Clear to auscultation Abdomen: Soft, nontender, no masses, no organomegaly Extremities: No edema, pulses palpated and 2 + in the feet, no calf tenderness. She has some tenderness, swelling, and redness of the right hand on the volar aspect at the base of the second third and fourth fingers and also some redness overlying dorsal aspect of the MCP joint region of the second and third finger of the right hand as well. There is discomfort with motion of her second, third , and fourth fingers of the right hand Now has bandage Skin: Without lesions or rash Neuro: Alert, oriented, normal motor exam, sensation intact, cranial nerves intact Results - Labs CBC & Chem 7: 02/11/18 05:30 02/11/18 05:30 Laboratory Results - last 24 hr 02/10/18 02/10/18 02/10/18 16:00 16:00 16:00 CBC w Diff Auto diff final WBC 10.2 RBC 4.51 Hgb 14.1 Hct 41.4 MCV 91.7 MCH 31.1 MCHC 34.0 RDW 12.2 Plt Count 230 MPV 7.7 Neut % (Auto) 78.5 H Lymph % (Auto) 15.4 [place] % (Auto) 4.2 Eos % (Auto) 1.0 Baso % (Auto) 0.9 Neut # (Auto) 8.0 H Lymph # (Auto) 1.6 [place] # (Auto) 0.4 Eos # (Auto) 0.1 Baso # (Auto) 0.1 WBC Differential . Differential Comment . ESR 17 PT 10.0 INR 1.0 APTT 29.2 Sodium Potassium Chloride Carbon Dioxide Anion Gap BUN Creatinine Estimated GFR POC Glucose Random Glucose Calcium C-Reactive Protein Urine Color Urine Clarity Urine pH Ur Specific [place] Urine Protein Urine Glucose (UA) Urine Ketones Urine Occult Blood Urine Nitrate Urine Bilirubin Urine Urobilinogen Ur Leukocyte Esterase Urine RBC Urine WBC Ur Squamous Epith Cells Amorphous Sediment Urine Bacteria Urine Mucus Micro UA Comment Ur Microscopic Review Urine Culture Comments 02/10/18 02/10/18 02/10/18 16:10 16:40 16:40 CBC w Diff WBC RBC Hgb Hct MCV MCH MCHC RDW Plt Count MPV Neut % (Auto) Lymph % (Auto) [place] % (Auto) Eos % (Auto) Baso % (Auto) Neut # (Auto) Lymph # (Auto) [place] # (Auto) Eos # (Auto) Baso # (Auto) WBC Differential Differential Comment ESR PT INR APTT Sodium 141 Potassium 3.6 Chloride 111 H Carbon Dioxide 23.8 Anion Gap 6 BUN 8 Creatinine 0.71 Estimated GFR 85 L POC Glucose Random Glucose 87 Calcium 8.0 L C-Reactive Protein 1.48 H Urine Color Yellow Urine Clarity Cloudy H Urine pH 6.5 Ur Specific [place] 1.015 Urine Protein Negative Urine Glucose (UA) Negative Urine Ketones Trace H Urine Occult Blood Small H Urine Nitrate Negative Urine Bilirubin Negative Urine Urobilinogen 1.0 Ur Leukocyte Esterase Large H Urine RBC 4-15 H Urine WBC 9-20 H Ur Squamous Epith Cells 0-5 Amorphous Sediment Few H Urine Bacteria Moderate H Urine Mucus Few H Micro UA Comment Cath-culture ind Ur Microscopic Review Microscopic reviewed Urine Culture Comments Cath-cult indicated 02/10/18 02/11/18 02/11/18 22:43 05:30 05:30 CBC w Diff Auto diff final WBC 9.4 RBC 4.17 Hgb 13.2 Hct 38.7 MCV 93.0 MCH 31.7 MCHC 34.1 RDW 12.5 Plt Count 225 MPV 7.3 Neut % (Auto) 79.5 H Lymph % (Auto) 13.6 [place] % (Auto) 6.0 Eos % (Auto) 0.4 Baso % (Auto) 0.5 Neut # (Auto) 7.5 Lymph # (Auto) 1.3 [place] # (Auto) 0.6 Eos # (Auto) 0.0 Baso # (Auto) 0.0 WBC Differential . Differential Comment . ESR PT INR APTT Sodium 141 Potassium 4.1 Chloride 107 Carbon Dioxide 29.7 Anion Gap 4 L BUN 7 Creatinine 0.73 Estimated GFR 82 L POC Glucose 104 Random Glucose 102 Calcium 8.2 L C-Reactive Protein Urine Color Urine Clarity Urine pH Ur Specific [place] Urine Protein Urine Glucose (UA) Urine Ketones Urine Occult Blood Urine Nitrate Urine Bilirubin Urine Urobilinogen Ur Leukocyte Esterase Urine RBC Urine WBC Ur Squamous Epith Cells Amorphous Sediment Urine Bacteria Urine Mucus Micro UA Comment Ur Microscopic Review Urine Culture Comments Microbiology 02/10/18 21:10 Abscess - Hand Gram Stain - Final 02/10/18 21:10 Abscess - Hand Gram Stain - Final - Imaging Impressions Hand MRI 02/10/18 15:55 CONCLUSION: 1. 8 x 4 mm fluid collection adjacent to the palmar aspect of the flexor tendon sheath of the third digit at the level of the MCP joint. 2. Mild edema about the palm of the second through fourth digit, expected postsurgical findings. Assessment and Plan - Assessment (1) Infection of right hand Code(s): L08.9 - Local infection of the skin and subcutaneous tissue, unspecified Status: Acute Plan: Continue vancomycin followed by Dr. Hughes hand orthopedics awaiting ID consult cultures pending (2) Hypothyroidism Code(s): E03.9 - Hypothyroidism, unspecified Status: Chronic Plan: Continue home medication (3) Fibromyalgia Code(s): M79.7 - Fibromyalgia Status: Chronic Plan: Continue home medications including trazodone and gabapentin (4) GERD (gastroesophageal reflux disease) Code(s): K21.9 - Gastro-esophageal reflux disease without esophagitis Status: Chronic Plan: Continue home medication (5) Depression Code(s): F32.9 - Major depressive disorder, single episode, unspecified Status : Chronic - Plan Continue current antibiotics pending culture results
--- NOTE | 2018-02-11 12:44 | ECG ---
Date Performed: 02/10/2018 Time Performed: 19:47:47 PTAGE: 57 years EKG: Sinus rhythm INCOMPLETE RIGHT BUNDLE BRANCH BLOCK MINIMAL ST DEPRESSION BORDERLINE ECG NO PREVIOUS TRACING DOCTOR: Nai Lucas Interpretating Date/Time 02/11/2018 12:41:19
--- NOTE | 2018-02-11 12:47 | P.CONID ---
History of Present Illness Service: Infectious disease Consult date: 02/11/18 Requesting Physician: Radha Hughes Reason for Consult: Evaluate patient with flexor tenosynovitis Primary Care Provider: Nidia Edward MD Chief Complaint: Right hand pain and swelling History of Present Illness: Patient seen and examined. Records reviewed. Patient is a 57-year-old female, admitted to the hospital for further evaluation and treatment of pain and swelling on her right hand. Patient had undergone surgery on her her right upper extremity January 14. She had right middle finger trigger release, as well as a right ulnar nerve decompression. Patient stated she did well after the procedure, and her incisions healed without any problem. She was progressing well as far as movement in her right hand and she was able to make a fist. About 5 days prior to admission patient developed some malaise, and some nausea. She thought she had a 1 day bug, and her symptoms improved after 1 day. About 4 days prior to admission that night she noticed an area of tenderness and a little swelling on the palmar aspect of her hand over part of the incision. She did not think much of it, but the following day when she woke up her whole palm was swollen, and the next day the swelling had involved the dorsal aspect of that hand. She also started noticing red streaking going up her right forearm. She called her surgeon, and she was seen on the day of admission was told to go to the hospital for further management. Patient underwent surgery yesterday. Patient has had some sweats. She has not had any documented fever. She has some sore throat but this is related to her allergies. Denies any cough or congestion. No vomiting. No diarrhea or any urinary complaints. Since admission she has not been febrile. Her white count is normal. Sed rate is normal. CRP is mildly elevated. Gram stain from the specimen and surgery has gram-positive cocci. Cultures are still pending. Patient currently is afebrile. She is complaining of some headaches. She also mention that her blood pressure has been running on the low side which is unusual for her. Pain seems to be under control. She is currently on IV vancomycin. Infectious disease consultation has been requested to assist with evaluation and treatment. Review of Systems Constitutional: Reports night sweats, Denies chills, Denies fever(s) Eyes: Denies discharge, Denies dry eyes Ears, Nose, Mouth, and Throat: Reports headache(s), Denies difficulty swallowing , Denies mouth pain, Denies neck pain, Denies pain with swallowing, Denies sore throat Cardiovascular: Denies chest pain, Denies shortness of breath Respiratory: Denies chest congestion, Denies cough, Denies shortness of breath Gastrointestinal: Reports nausea, Denies abdominal pain, Denies loose stools, Denies pain with swallowing, Denies vomiting Genitourinary: Denies difficulty urinating, Denies painful urination Skin/Breast: Denies rash, Denies sores PMFSH - History History Provided By: Patient - Medical History Medical History: Medical History (Last Reviewed 02/11/18 @ 12:45 by Ivett Garcia MD) Fibromyalgia GERD (gastroesophageal reflux disease) History of CVA (cerebrovascular accident) History of trigger finger Hx of hysterectomy Hypothyroid - Surgical History Surgical History: Surgical History (Last Reviewed 02/11/18 @ 12:45 by Ivett Garcia MD) Hx of section Hx of decompression of ulnar nerve - Tobacco History Second Hand Smoke Exposure: No Tobacco Use In Past 30 Days: No Smoking Status: Former smoker - Alcohol History How Often Do You Have a Drink Containing Alcohol: Monthly or less - Substance Use History Substance History: No History of Abuse - Travel History Recent Travel in the [place] Within the Last 8 Weeks: No Recent Travel Out of the Country Within the Last 8 Weeks: No - Immunization History Tetanus Immunization: <5 Years Hx Influenza Vaccine This Season: Yes Medications and Allergies Active Medications: Active Medications Citalopram Hydrobromide (Celexa) 20 mg PO HS [facility] Clopidogrel Bisulfate (Plavix) 75 mg PO DAILY [facility] Last Admin: 02/11/18 09:00 Dose: 75 mg Gabapentin (Neurontin) 300 mg PO TID@0600,1400,2000 [facility] Vancomycin HCl 1,250 mg/ (Sodium Chloride) 262.5 mls @ 250 mls/hr IV.SIG Q12H KEVIN Last Infusion: 02/11/18 10:25 Dose: Infused Lactated Ringer's (Lr 1000 Ml Inj) 1,000 mls @ 30 mls/hr IV.SIG .Q24H KEVIN Stop: 02/11/18 20:44 Last Infusion: 02/10/18 22:48 Dose: Infused Sodium Chloride (Ns Inj) 500 mls @ 30 mls/hr IV.SIG .Q10H [facility] Last Admin: 02/10/18 20:44 Dose: Not Given Levothyroxine Sodium (Synthroid) 75 mcg PO DAILY@0600 [facility] Miscellaneous Information ([facility] Ordered Lab Info) 0 each OTHER ONCE ONE Stop: 02/12/18 08:46 Pantoprazole Sodium (Protonix) 20 mg PO DAILY [facility] Last Admin: 02/11/18 09:09 Dose: 20 mg Pharmacy Profile Note (Vancomycin Consult Pharmacy) 1 each OTHER UNSCH PRN PRN Reason: Pharmacy to dose Sodium Chloride (Ns Flush) 2 ml IV.FLUSH PRN PRN PRN Reason: FLUSH AFTER USING IV ACCESS Sodium Chloride (Ns Flush) 2 ml IV.FLUSH BID [facility] Tramadol HCl (Ultram) 50 mg PO Q8H PRN PRN Reason: Acute Pain 1 - 10 Last Admin: 02/11/18 09:26 Dose: 50 mg Trazodone HCl (Desyrel) [address] [facility] Allergies Allergy/AdvReac Type Severity Reaction Status Date / Time aspirin Allergy Severe CAUSES A Verified 02/10/18 19:54 DEEP SLEEP codeine Allergy Severe CAUSES TO Verified 02/10/18 19:54 DEEP SLEEP penicillin G Allergy Severe Anaphylaxis Verified 02/10/18 19:54 Home Medications Medication Instructions Recorded Confirmed Type citalopram 20 mg PO DAILY 02/10/18 02/10/18 History clopidogrel 75 mg PO DAILY 02/10/18 02/10/18 History gabapentin 300 mg PO TID 02/10/18 02/10/18 History levothyroxine 75 mcg PO DAILY 02/10/18 02/10/18 History pantoprazole 20 mg PO DAILY 02/10/18 02/10/18 History trazodone 100 mg PO DAILY 02/10/18 02/10/18 History Exam Vital signs: Vital Signs 02/10/18 15:36 02/10/18 17:35 02/10/18 20:36 Temperature 97.8 F 98.3 F Pulse Rate 74 72 74 Respiratory Rate 18 16 20 Blood Pressure 166/85 H 119/81 135/81 Pulse Oximetry 94 L 98 95 02/10/18 20:44 02/10/18 21:45 02/10/18 22:00 Temperature 98.3 F 98.1 F Pulse Rate 78 83 82 Respiratory Rate 18 18 18 Blood Pressure 135/81 123/85 112/67 Pulse Oximetry 93 L 98 02/10/18 22:15 02/10/18 22:30 02/10/18 22:43 Temperature Pulse Rate 74 78 78 Respiratory Rate 20 20 Blood Pressure 127/72 110/51 L Pulse Oximetry 96 98 98 02/10/18 23:05 02/11/18 00:00 02/11/18 08:00 Temperature 98.3 F 98.3 F 99.5 F Pulse Rate 88 91 H 101 H Respiratory Rate 16 16 16 Blood Pressure 97/55 L 97/55 L 87/49 L Pulse Oximetry 88 L 87 L 95 Intake & Output 02/10/18 02/11/18 02/11/18 18:59 06:59 18:59 Intake Total 1362.5 / 1362.5 270 / 270 Balance 1362.5 / 1362.5 270 / 270 Weight 108.2 kg 110.9 kg Intake: IV 1062.5 / 1062.5 270 / 270 LR 1000 mL Inj 1,000 ML @ 30 800 / 800 mls/hr IV.SIG .Q24H KEVIN Rx#: [id number] Vancomycin Inj 1,250 MG In NS 262.5 / 262.5 270 / 270 Inj 250 ML @ 250 mls/hr IV.SIG Q12H KEVIN Rx#:[id number] Other 300 / 300 Other: Other Intake Source Saline Solution # Voids 1 Date of Last Bowel Movement 02/09/18 Weight On Admission 110.9 kg Narrative: Physical examination GENERAL: Patient is a well-nourished, well-developed female, awake and alert , not in respiratory distress. SKIN: Cool and dry. No generalized rash, no ecchymoses and no evidence of embolic lesions. HEAD: Atraumatic. Normocephalic. No temporal wasting, or tenderness. EYES: [place] conjunctiva. No petechia or hemorrhage. Pupils equal, round and reactive to light. Extraocular movements full and intact. No scleral icterus. No injection or drainage. EARS, NOSE AND THROAT: Nose without bleeding or purulent nasal discharge. No sinus tenderness. Mucous membranes pink and moist. No oral lesions noted. No exudate. No oral thrush. NECK: Trachea midline. Supple and not tender, no meningeal signs CARDIOVASCULAR: Regular rate and rhythm. No murmurs, rubs or gallops heard RESPIRATORY: Clear to auscultation. Breath sounds equal bilaterally. No rales , wheezing or rhonchi ABDOMEN: Soft, non-tender, nondistended. Bowel sounds present and normoactive. No guarding. No rebound. No organomegaly. EXTREMITIES: No clubbing, cyanosis, or edema. Intact and dry dressing to the R hand. No lymphangitis noted in her R forearm or upper arm. Incision well healed in elbow area. Good ROM joints. Some swelling of fingers R hand exposed , not red. No calf tenderness. NEUROLOGICAL: Awake and alert. Cranial nerves grossly intact. Motor grossly within normal limits. PSYCHIATRIC: Normal affect, calm and cooperative. LINE: No evidence of infection Results - Labs CBC & Chem 7: 02/11/18 05:30 02/11/18 05:30 Labs: Laboratory Results - last 24 hr 02/10/18 02/10/18 02/10/18 16:00 16:00 16:00 CBC w Diff Auto diff final WBC 10.2 RBC 4.51 Hgb 14.1 Hct 41.4 MCV 91.7 MCH 31.1 MCHC 34.0 RDW 12.2 Plt Count 230 MPV 7.7 Neut % (Auto) 78.5 H Lymph % (Auto) 15.4 [place] % (Auto) 4.2 Eos % (Auto) 1.0 Baso % (Auto) 0.9 Neut # (Auto) 8.0 H Lymph # (Auto) 1.6 [place] # (Auto) 0.4 Eos # (Auto) 0.1 Baso # (Auto) 0.1 WBC Differential . Differential Comment . ESR 17 PT 10.0 INR 1.0 APTT 29.2 Sodium Potassium Chloride Carbon Dioxide Anion Gap BUN Creatinine Estimated GFR POC Glucose Random Glucose Calcium C-Reactive Protein Urine Color Urine Clarity Urine pH Ur Specific [place] Urine Protein Urine Glucose (UA) Urine Ketones Urine Occult Blood Urine Nitrate Urine Bilirubin Urine Urobilinogen Ur Leukocyte Esterase Urine RBC Urine WBC Ur Squamous Epith Cells Amorphous Sediment Urine Bacteria Urine Mucus Micro UA Comment Ur Microscopic Review Urine Culture Comments 02/10/18 02/10/18 02/10/18 16:10 16:40 16:40 CBC w Diff WBC RBC Hgb Hct MCV MCH MCHC RDW Plt Count MPV Neut % (Auto) Lymph % (Auto) [place] % (Auto) Eos % (Auto) Baso % (Auto) Neut # (Auto) Lymph # (Auto) [place] # (Auto) Eos # (Auto) Baso # (Auto) WBC Differential Differential Comment ESR PT INR APTT Sodium 141 Potassium 3.6 Chloride 111 H Carbon Dioxide 23.8 Anion Gap 6 BUN 8 Creatinine 0.71 Estimated GFR 85 L POC Glucose Random Glucose 87 Calcium 8.0 L C-Reactive Protein 1.48 H Urine Color Yellow Urine Clarity Cloudy H Urine pH 6.5 Ur Specific [place] 1.015 Urine Protein Negative Urine Glucose (UA) Negative Urine Ketones Trace H Urine Occult Blood Small H Urine Nitrate Negative Urine Bilirubin Negative Urine Urobilinogen 1.0 Ur Leukocyte Esterase Large H Urine RBC 4-15 H Urine WBC 9-20 H Ur Squamous Epith Cells 0-5 Amorphous Sediment Few H Urine Bacteria Moderate H Urine Mucus Few H Micro UA Comment Cath-culture ind Ur Microscopic Review Microscopic reviewed Urine Culture Comments Cath-cult indicated 02/10/18 02/11/18 02/11/18 22:43 05:30 05:30 CBC w Diff Auto diff final WBC 9.4 RBC 4.17 Hgb 13.2 Hct 38.7 MCV 93.0 MCH 31.7 MCHC 34.1 RDW 12.5 Plt Count 225 MPV 7.3 Neut % (Auto) 79.5 H Lymph % (Auto) 13.6 [place] % (Auto) 6.0 Eos % (Auto) 0.4 Baso % (Auto) 0.5 Neut # (Auto) 7.5 Lymph # (Auto) 1.3 [place] # (Auto) 0.6 Eos # (Auto) 0.0 Baso # (Auto) 0.0 WBC Differential . Differential Comment . ESR PT INR APTT Sodium 141 Potassium 4.1 Chloride 107 Carbon Dioxide 29.7 Anion Gap 4 L BUN 7 Creatinine 0.73 Estimated GFR 82 L POC Glucose 104 Random Glucose 102 Calcium 8.2 L C-Reactive Protein Urine Color Urine Clarity Urine pH Ur Specific [place] Urine Protein Urine Glucose (UA) Urine Ketones Urine Occult Blood Urine Nitrate Urine Bilirubin Urine Urobilinogen Ur Leukocyte Esterase Urine RBC Urine WBC Ur Squamous Epith Cells Amorphous Sediment Urine Bacteria Urine Mucus Micro UA Comment Ur Microscopic Review Urine Culture Comments - Imaging Impressions Hand MRI 02/10/18 15:55 CONCLUSION: 1. 8 x 4 mm fluid collection adjacent to the palmar aspect of the flexor tendon sheath of the third digit at the level of the MCP joint. 2. Mild edema about the palm of the second through fourth digit, expected postsurgical findings. Assessment and Plan - Plan Impression Infection R hand, with flexor tenosynovitis RMF, S/P OR - G/S GPC, possibly Staph or Strep Possible sepsis, BP running low and has some tachycardia Recommendation Follow C/S Get 2 BC today Continue IV Vanco Monitor progress I will determine course of Rx Once work-up and cultures finalized Explained plan to the patient I will follow along with you Thank you for this consultation
[2018-02-11] MEDS: Gabapentin 300 MG Capsule PO SCH ×2 (14:48→20:19)
[2018-02-11] MEDS: Acetaminophen 325 MG Tablet PO PRN (14:48)
[2018-02-11] MEDS: Citalopram 20 MG Tablet PO SCH (20:19)
[2018-02-12] MEDS: Gabapentin 300 MG Capsule PO SCH ×3 (05:37→20:25)
[2018-02-12] MEDS: Levothyroxine 75 MCG Tablet PO SCH (05:37)
[2018-02-12] MEDS: Acetaminophen 325 MG Tablet PO PRN (05:40)
[2018-02-12] MEDS ORDERED: Pharmacy Ordered Lab Info OTHER ONE (08:45)
[2018-02-12] MEDS: Pantoprazole Sodium 20 MG DR Tablet PO SCH (09:08)
[2018-02-12] MEDS: Vancomycin Inj 1,250 MG in Sodium Chlor 0.9% Inj 250 ML IV.SIG SCH (09:09)
[2018-02-12 10:33] VITALS: RESP 20
--- NOTE | 2018-02-12 11:19 | P.PN ---
Subjective Interval history: patient feeling a little tired today no specific compliant will change dressing later today Physical Exam Vital signs: Vital Signs 02/11/18 12:00 02/11/18 16:00 02/11/18 20:00 Temperature 98.1 F 98.8 F 97.6 F Pulse Rate 72 73 66 Respiratory Rate 17 17 20 Blood Pressure 89/52 L 101/51 L 100/63 Pulse Oximetry 96 95 100 02/12/18 00:00 02/12/18 08:00 Temperature 99.6 F 97.1 F L Pulse Rate 79 72 Respiratory Rate 16 20 Blood Pressure 113/59 L 114/59 L Pulse Oximetry 98 95 Intake & Output 02/11/18 02/12/18 02/12/18 18:59 06:59 18:59 Intake Total 270 / 270 462.5 / 462.5 Balance 270 / 270 462.5 / 462.5 Weight 112.3 kg Intake: IV 270 / 270 262.5 / 262.5 Vancomycin Inj 1,250 MG In NS 270 / 270 262.5 / 262.5 Inj 250 ML @ 250 mls/hr IV.SIG Q12H KEVIN Rx#:[id number] Oral 200 / 200 Other: # Voids 3 3 Date of Last Bowel Movement 02/09/18 02/10/18 Narrative: Physical examination GENERAL: Patient is a well-nourished, well-developed female, awake and alert , not in respiratory distress. SKIN: Cool and dry. No generalized rash, no ecchymoses and no evidence of embolic lesions. HEAD: Atraumatic. Normocephalic. No temporal wasting, or tenderness. EYES: [place] conjunctiva. No petechia or hemorrhage. Pupils equal, round and reactive to light. Extraocular movements full and intact. No scleral icterus. No injection or drainage. EARS, NOSE AND THROAT: Nose without bleeding or purulent nasal discharge. No sinus tenderness. Mucous membranes pink and moist. No oral lesions noted. No exudate. No oral thrush. NECK: Trachea midline. Supple and not tender, no meningeal signs CARDIOVASCULAR: Regular rate and rhythm. No murmurs, rubs or gallops heard RESPIRATORY: Clear to auscultation. Breath sounds equal bilaterally. No rales , wheezing or rhonchi ABDOMEN: Soft, non-tender, nondistended. Bowel sounds present and normoactive. No guarding. No rebound. No organomegaly. EXTREMITIES: No clubbing, cyanosis, or edema. Intact and dry dressing to the R hand. No lymphangitis noted in her R forearm or upper arm. Incision well healed in elbow area. Good ROM joints. Some swelling of fingers R hand exposed , not red. No calf tenderness. NEUROLOGICAL: Awake and alert. Cranial nerves grossly intact. Motor grossly within normal limits. PSYCHIATRIC: Normal affect, calm and cooperative. LINE: No evidence of infection Results - Labs CBC & Chem 7: 02/11/18 05:30 02/11/18 05:30 Microbiology 02/10/18 16:00 Blood - Peripheral Aerobic Blood Culture - Preliminary No growth in 2 days 02/10/18 16:00 Blood - Peripheral Anaerobic Blood Culture - Preliminary No growth in 2 days 02/10/18 16:05 Blood - Peripheral Aerobic Blood Culture - Preliminary No growth in 2 days 02/10/18 16:05 Blood - Peripheral Anaerobic Blood Culture - Preliminary No growth in 2 days 02/10/18 21:10 Abscess - Hand Acid Fast Bacilli Smear - Final No acid fast bacilli seen 02/10/18 21:10 Abscess - Hand Acid Fast Bacilli Smear - Final No acid fast bacilli seen 02/10/18 16:10 Clean Catch Urine Urine Culture - Final 10-50,000 cfu/mL mixed gram positive rahul (probable contaminants) 02/10/18 21:10 Abscess - Hand Fungal Smear - Final No fungal elements seen 02/10/18 21:10 Abscess - Hand Fungal Smear - Final No fungal elements seen 02/10/18 21:10 Abscess - Hand Gram Stain - Final 02/10/18 21:10 Abscess - Hand Gram Stain - Final Assessment and Plan - Assessment (1) Infection of right hand Code(s): L08.9 - Local infection of the skin and subcutaneous tissue, unspecified Status: Acute Plan: Continue vancomycin followed by dr radha galo,will have dressing change ,bp running low will monitor may need some IV fluid,recheck labs (2) Hypothyroidism Code(s): E03.9 - Hypothyroidism, unspecified Status: Chronic Plan: Continue home medication will check tsh (3) Fibromyalgia Code(s): M79.7 - Fibromyalgia Status: Chronic Plan: Continue home medications including trazodone and gabapentin (4) GERD (gastroesophageal reflux disease) Code(s): K21.9 - Gastro-esophageal reflux disease without esophagitis Status: Chronic Plan: Continue home medication (5) Depression Code(s): F32.9 - Major depressive disorder, single episode, unspecified Status : Chronic - Plan Continue current antibiotics pending culture results
[2018-02-12] MEDS: Vancomycin Inj 1,000 MG in Sodium Chlor 0.9% Inj 250 ML IV.SIG SCH (17:30)
[2018-02-12] MEDS: Docusate Sodium 100 MG Capsule PO SCH (20:24)
[2018-02-12] MEDS: Citalopram 20 MG Tablet PO SCH (20:25)
[2018-02-12] MEDS: traZODone 100 MG Tablet PO SCH (20:25)
[2018-02-13] MEDS: Vancomycin Inj 1,250 MG in Sodium Chlor 0.9% Inj 250 ML IV.SIG SCH (00:06)
[2018-02-13] MEDS: Vancomycin Inj 1,000 MG in Sodium Chlor 0.9% Inj 250 ML IV.SIG SCH ×2 (01:52→09:40)
[2018-02-13] MEDS: Gabapentin 300 MG Capsule PO SCH ×2 (05:26→14:16)
[2018-02-13] MEDS: Levothyroxine 75 MCG Tablet PO SCH (05:26)
[2018-02-13 06:24] LABS: Baso # (Auto) 0.1 th/mm3 (0.0-0.2); Baso % (Auto) 0.7 % (0.0-2.0); Eos # (Auto) 0.1 th/mm3 (0.0-0.4); Eos % (Auto) 1.6 % (0.0-4.0); Hematocrit 34.2 % (35.0-46.0); Hemoglobin 12.2 gm/dL (11.6-15.3); Lymph # (Auto) 1.9 th/mm3 (1.0-4.8); Mean Corpuscular HGB Conc 35.6 % (32.0-36.0); Mean Corpuscular Hemoglobin 31.7 pg (27.0-34.0); Mean Platelet Volume 7.8 fL (7.0-11.0); Mono # (Auto) 0.5 th/mm3 (0.0-0.9); Mono % (Auto) 6.6 % (0.0-8.0); Neut # (Auto) 5.1 th/mm3 (1.8-7.7); Neut % (Auto) 67.1 % (16.0-70.0); Platelet Count 213 th/mm3 (150-450); Red Blood Count 3.84 mil/mm3 (4.00-5.30); Red Cell Distribution Width 12.6 % (11.6-17.2); White Blood Count 7.7 th/mm3 (4.0-11.0)
[2018-02-13 06:40] LABS: Chloride 106 meq/L (98-107); Potassium 3.5 meq/L (3.5-5.1); Sodium 141 meq/L (136-145)
[2018-02-13 06:44] LABS: Anion Gap 7 meq/L (5-15); Blood Urea Nitrogen 6 mg/dL (7-18); Carbon Dioxide 28.4 meq/L (21.0-32.0); Glucose,Random 82 mg/dL (74-106)
[2018-02-13 06:47] LABS: Glomerular Filtration Rate Greater Than 89 mL/min (>89)
[2018-02-13] MEDS ORDERED: Pharmacy Ordered Lab Info OTHER ONE (08:45)
[2018-02-13] MEDS: Pantoprazole Sodium 20 MG DR Tablet PO SCH (09:09)
[2018-02-13] MEDS: Docusate Sodium 100 MG Capsule PO SCH (09:09)
--- NOTE | 2018-02-13 12:07 | P.PN ---
Subjective Interval history: Patient about the same waiting for ortho to see ,growing staph in wound culture all other cultures negative Physical Exam Vital signs: Vital Signs 02/12/18 13:30 02/12/18 13:45 02/12/18 16:00 Temperature 97.1 F L Pulse Rate 65 Respiratory Rate 20 Blood Pressure 118/68 Pulse Oximetry 97 96 95 02/12/18 20:00 02/13/18 00:00 02/13/18 08:00 Temperature 98.3 F 97.9 F 97.5 F L Pulse Rate 77 69 66 Respiratory Rate 20 20 20 Blood Pressure 110/82 119/60 110/72 Pulse Oximetry 94 L 94 L 95 Intake & Output 02/12/18 02/13/18 02/13/18 18:59 06:59 18:59 Intake Total 1301 / 1301 742.5 / 742.5 250 / 250 Balance 1301 / 1301 742.5 / 742.5 250 / 250 Weight 111.7 kg Intake: IV 520 / 520 262.5 / 262.5 250 / 250 Vancomycin Inj 1,000 MG In NS 250 / 250 250 / 250 Inj 250 ML @ 250 mls/hr IV.SIG Q8H KEVIN Rx#:[id number] Vancomycin Inj 1,250 MG In NS 270 / 270 262.5 / 262.5 Inj 250 ML @ 250 mls/hr IV.SIG Q12H KEVIN Rx#:[id number] Oral 781 / 781 480 / 480 Other: # Voids 5 2 Date of Last Bowel Movement 02/10/18 # Bowel Movements 0 0 Narrative: Physical examination GENERAL: Patient is a well-nourished, well-developed female, awake and alert , not in respiratory distress. SKIN: Cool and dry. No generalized rash, no ecchymoses and no evidence of embolic lesions. HEAD: Atraumatic. Normocephalic. No temporal wasting, or tenderness. EYES: [place] conjunctiva. No petechia or hemorrhage. Pupils equal, round and reactive to light. Extraocular movements full and intact. No scleral icterus. No injection or drainage. EARS, NOSE AND THROAT: Nose without bleeding or purulent nasal discharge. No sinus tenderness. Mucous membranes pink and moist. No oral lesions noted. No exudate. No oral thrush. NECK: Trachea midline. Supple and not tender, no meningeal signs CARDIOVASCULAR: Regular rate and rhythm. No murmurs, rubs or gallops heard RESPIRATORY: Clear to auscultation. Breath sounds equal bilaterally. No rales , wheezing or rhonchi ABDOMEN: Soft, non-tender, nondistended. Bowel sounds present and normoactive. No guarding. No rebound. No organomegaly. EXTREMITIES: No clubbing, cyanosis, or edema. Intact and dry dressing to the R hand. No lymphangitis noted in her R forearm or upper arm. Incision well healed in elbow area. Good ROM joints. Some swelling of fingers R hand exposed , not red. No calf tenderness. NEUROLOGICAL: Awake and alert. Cranial nerves grossly intact. Motor grossly within normal limits. PSYCHIATRIC: Normal affect, calm and cooperative. LINE: No evidence of infection Results - Labs CBC & Chem 7: 02/13/18 05:40 02/13/18 05:40 Laboratory Results - last 24 hr 02/12/18 02/13/18 02/13/18 09:00 05:40 05:40 CBC w Diff Auto diff final WBC 7.7 RBC 3.84 L Hgb 12.2 Hct 34.2 L MCV 89.0 D MCH 31.7 MCHC 35.6 RDW 12.6 Plt Count 213 MPV 7.8 Neut % (Auto) 67.1 Lymph % (Auto) 24.0 [place] % (Auto) 6.6 Eos % (Auto) 1.6 Baso % (Auto) 0.7 Neut # (Auto) 5.1 Lymph # (Auto) 1.9 [place] # (Auto) 0.5 Eos # (Auto) 0.1 Baso # (Auto) 0.1 WBC Differential . Differential Comment . Sodium 141 Potassium 3.5 Chloride 106 Carbon Dioxide 28.4 Anion Gap 7 BUN 6 L Creatinine 0.66 Estimated GFR Greater than 89 Random Glucose 82 Calcium 8.0 L Vancomycin Trough 7.1 Microbiology 02/10/18 16:00 Blood - Peripheral Aerobic Blood Culture - Preliminary No growth in 3 days 02/10/18 16:00 Blood - Peripheral Anaerobic Blood Culture - Preliminary No growth in 3 days 02/10/18 16:05 Blood - Peripheral Aerobic Blood Culture - Preliminary No growth in 3 days 02/10/18 16:05 Blood - Peripheral Anaerobic Blood Culture - Preliminary No growth in 3 days 02/10/18 21:10 Abscess - Hand Gram Stain - Final 02/10/18 21:10 Abscess - Hand Wound Culture - Final Staphylococcus aureus 02/10/18 21:10 Abscess - Hand Gram Stain - Final 02/10/18 21:10 Abscess - Hand Wound Culture - Final Staphylococcus aureus 02/10/18 21:10 Abscess - Hand Acid Fast Bacilli Smear - Final No acid fast bacilli seen 02/10/18 21:10 Abscess - Hand Acid Fast Bacilli Smear - Final No acid fast bacilli seen 02/10/18 16:10 Clean Catch Urine Urine Culture - Final 10-50,000 cfu/mL mixed gram positive rahul (probable contaminants) 02/10/18 21:10 Abscess - Hand Fungal Smear - Final No fungal elements seen 02/10/18 21:10 Abscess - Hand Fungal Smear - Final No fungal elements seen Assessment and Plan - Assessment (1) Infection of right hand Code(s): L08.9 - Local infection of the skin and subcutaneous tissue, unspecified Status: Acute Plan: Continue vancomycin followed by dr radha galo,will have dressing change ,bp stable (2) Hypothyroidism Code(s): E03.9 - Hypothyroidism, unspecified Status: Chronic Plan: Continue home medication TSH normal range (3) Fibromyalgia Code(s): M79.7 - Fibromyalgia Status: Chronic Plan: Continue home medications including trazodone and gabapentin (4) GERD (gastroesophageal reflux disease) Code(s): K21.9 - Gastro-esophageal reflux disease without esophagitis Status: Chronic Plan: Continue home medication (5) Depression Code(s): F32.9 - Major depressive disorder, single episode, unspecified Status : Chronic - Plan Continue current antibiotics cultues staph at this time wound rest cultures negative
[2018-02-13] MEDS ORDERED: levoFLOXacin 750 MG Tablet PO SCH (13:45)
--- NOTE | 2018-02-13 13:56 | P.PNID ---
Subjective Remarks: Patient is a 57-year-old female, admitted to the hospital for further evaluation and treatment of pain and swelling on her right hand. Patient had undergone surgery on her her right upper extremity January 14. She had right middle finger trigger release, as well as a right ulnar nerve decompression. Patient stated she did well after the procedure, and her incisions healed without any problem. She was progressing well as far as movement in her right hand and she was able to make a fist. About 5 days prior to admission patient developed some malaise, and some nausea. She thought she had a 1 day bug, and her symptoms improved after 1 day. About 4 days prior to admission that night she noticed an area of tenderness and a little swelling on the palmar aspect of her hand over part of the incision. She did not think much of it, but the following day when she woke up her whole palm was swollen, and the next day the swelling had involved the dorsal aspect of that hand. She also started noticing red streaking going up her right forearm. She called her surgeon, and she was seen on the day of admission was told to go to the hospital for further management. Patient underwent surgery yesterday. Patient has had some sweats. She has not had any documented fever. She has some sore throat but this is related to her allergies. Denies any cough or congestion. No vomiting. No diarrhea or any urinary complaints. Since admission she has not been febrile. Her white count is normal. Sed rate is normal. CRP is mildly elevated. Gram stain from the specimen and surgery has gram-positive cocci. Cultures are still pending. Patient currently is afebrile. She is complaining of some headaches. She also mention that her blood pressure has been running on the low side which is unusual for her. Pain seems to be under control. She is currently on IV vancomycin. Infectious disease consultation has been requested to assist with evaluation and treatment. Notes reviewed No fever Still with pain R hand about level 5 C/S MSSA Antibiotics: Vancomycin Lines: PIV Past Medical History: Fibromyalgia GERD (gastroesophageal reflux disease) History of CVA (cerebrovascular accident) History of trigger finger Hx of hysterectomy Hypothyroid Hx of section Hx of decompression of ulnar nerve Allergies/Adverse Reactions: Allergies aspirin Allergy (Severe, Verified 02/10/18 19:54) CAUSES A DEEP SLEEP codeine Allergy (Severe, Verified 11/12/18 19:54) CAUSES TO DEEP SLEEP penicillin G Allergy (Severe, Verified 02/10/18 19:54) Anaphylaxis Objective Vital Signs 02/12/18 16:00 02/12/18 20:00 02/13/18 00:00 Temperature 97.1 F L 98.3 F 97.9 F Pulse Rate 65 77 69 Respiratory Rate 20 20 20 Blood Pressure 118/68 110/82 119/60 Pulse Oximetry 95 94 L 94 L 02/13/18 08:00 Temperature 97.5 F L Pulse Rate 66 Respiratory Rate 20 Blood Pressure 110/72 Pulse Oximetry 95 Intake & Output 02/12/18 02/13/18 02/13/18 18:59 06:59 18:59 Intake Total 1301 / 1301 742.5 / 742.5 250 / 250 Balance 1301 / 1301 742.5 / 742.5 250 / 250 Weight 111.7 kg Intake: IV 520 / 520 262.5 / 262.5 250 / 250 Vancomycin Inj 1,000 MG In NS 250 / 250 250 / 250 Inj 250 ML @ 250 mls/hr IV.SIG Q8H KEVIN Rx#:[id number] Vancomycin Inj 1,250 MG In NS 270 / 270 262.5 / 262.5 Inj 250 ML @ 250 mls/hr IV.SIG Q12H KEVIN Rx#:[id number] Oral 781 / 781 480 / 480 Other: # Voids 5 2 Date of Last Bowel Movement 02/10/18 # Bowel Movements 0 0 02/10/18 16:00 Blood - Peripheral Aerobic Blood Culture - Preliminary No growth in 3 days 02/10/18 16:00 Blood - Peripheral Anaerobic Blood Culture - Preliminary No growth in 3 days 02/10/18 16:05 Blood - Peripheral Aerobic Blood Culture - Preliminary No growth in 3 days 02/10/18 16:05 Blood - Peripheral Anaerobic Blood Culture - Preliminary No growth in 3 days 02/10/18 21:10 Abscess - Hand Gram Stain - Final 02/10/18 21:10 Abscess - Hand Wound Culture - Final Staphylococcus aureus 02/10/18 21:10 Abscess - Hand Gram Stain - Final 02/10/18 21:10 Abscess - Hand Wound Culture - Final Staphylococcus aureus 02/10/18 21:10 Abscess - Hand Acid Fast Bacilli Smear - Final No acid fast bacilli seen 02/10/18 21:10 Abscess - Hand Mycobacterial Culture - Pending 02/10/18 21:10 Abscess - Hand Acid Fast Bacilli Smear - Final No acid fast bacilli seen 02/10/18 21:10 Abscess - Hand Mycobacterial Culture - Pending 02/10/18 16:10 Clean Catch Urine Urine Culture - Final 10-50,000 cfu/mL mixed gram positive rahul (probable contaminants) 02/10/18 21:10 Abscess - Hand Fungal Smear - Final No fungal elements seen 02/10/18 21:10 Abscess - Hand Fungal Culture - Pending 02/10/18 21:10 Abscess - Hand Fungal Smear - Final No fungal elements seen 02/10/18 21:10 Abscess - Hand Fungal Culture - Pending Lab - Hematology Results 02/13/18 05:40 CBC w Diff Auto diff final WBC 7.7 RBC 3.84 L Hgb 12.2 Hct 34.2 L MCV 89.0 D MCH 31.7 MCHC 35.6 RDW 12.6 Plt Count 213 MPV 7.8 Neut % (Auto) 67.1 Lymph % (Auto) 24.0 [place] % (Auto) 6.6 Eos % (Auto) 1.6 Baso % (Auto) 0.7 Neut # (Auto) 5.1 Lymph # (Auto) 1.9 [place] # (Auto) 0.5 Eos # (Auto) 0.1 Baso # (Auto) 0.1 WBC Differential . Differential Comment . Lab - Chemistry Results 02/12/18 02/13/18 09:00 05:40 Sodium 141 Potassium 3.5 Chloride 106 Carbon Dioxide 28.4 Anion Gap 7 BUN 6 L Creatinine 0.66 Estimated GFR Greater than 89 Random Glucose 82 Calcium 8.0 L TSH 0.389 Imaging: ITS Impressions Hand MRI 02/10/18 15:55 CONCLUSION: 1. 8 x 4 mm fluid collection adjacent to the palmar aspect of the flexor tendon sheath of the third digit at the level of the MCP joint. 2. Mild edema about the palm of the second through fourth digit, expected postsurgical findings. Physical Exam: GENERAL: awake and alert, not in respiratory distress. SKIN: Cool and dry. No generalized rash. EYES: [place] conjunctiva. No petechia or hemorrhage. Pupils equal, round and reactive to light. Extraocular movements full and intact. No scleral icterus. No injection or drainage. EARS, NOSE AND THROAT: Mucous membranes pink and moist. No oral lesions noted. No exudate. No oral thrush. NECK: Trachea midline. Supple and not tender, no meningeal signs CARDIOVASCULAR: Regular rate and rhythm. No murmurs, rubs or gallops heard RESPIRATORY: Clear to auscultation. Breath sounds equal bilaterally. No rales , wheezing or rhonchi ABDOMEN: Soft, non-tender, nondistended. Bowel sounds present and normoactive. No guarding. No rebound. No organomegaly. EXTREMITIES: No clubbing, cyanosis, or edema. R hand - swelling on her hand, both on palm and dorsum, with some erythema over MCP RMF and R ring finger. Incision on pal is dry, no drainage with swelling and some erythema. No lymphangitis noted in her R forearm or upper arm. NEUROLOGICAL: Grossly non-focAL. PSYCHIATRIC: Normal affect, calm and cooperative. LINE: No evidence of infection Assessment and Plan - Plan Impression Infection R hand, with flexor tenosynovitis RMF, S/P OR - c/s mssa Possible sepsis, BP running low and has some tachycardia Recommendation Elevate RUE for edema control PO Levaquin x at least 14 days Stop vancomycin OK for D/C Explained plan to the patient
--- NOTE | 2018-02-13 17:03 | P.DS ---
Date of admission: 02/10/18 18:48 Primary care physician: Nidia Edward MD Attending physician on discharge: Pramod Pedroza Anticipated date of discharge: 02/13/18 Brief History from admission: 57-year-old white female who had a trigger finger release on her right hand involving the middle finger at the MCP joint on January [address] Hughes. She was doing well until about 2 days ago when she started getting swelling and tenderness on the volar aspect of the hand at the base of the third finger that has increased since then the redness has extended over to the dorsal aspect of the right hand also near the second and third finger base. She was seen by Dr. Hughes this afternoon and advised to go the emergency room for admission for IV antibiotic therapy and an MRI of the hand. She is admitted to the [facility] with Dr. Hughes to consult. Medical history: Fibromyalgia Hypothyroidism Depression Gastroesophageal reflux disease Prior history of stroke about 10 years ago No heart disease, diabetes mellitus, liver disease, kidney disease, peptic ulcer disease, colon disease. She was treated for hypertension until about 5 months ago she was taken off of blood pressure medicine after she had lost about 30 pounds. No lung disease Surgical history: She had the right middle finger trigger release on 01/14/2018 of the right hand She had a right ulnar nerve decompression by Dr. Hughes on 01/14/2019 x3 BETO and BSO allergies aspirin, codeine, penicillin G (anaphylaxis) Medications: Citalopram 20 mg daily Clopidogrel 75 mg daily Gabapentin 300 mg Levothyroxine 75 mcg daily Pantoprazole 20 mg daily Trazodone 100 mg at bedtime for sleep Family history: Her mother is still living at 85 and has hypothyroidism Her dad at 74 he had COPD and congestive heart failure Social history: She quit smoking about 10 years ago and smoked only a pack a week times 15 years. 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 Hughes DS: Diagnosis - Discharge Diagnosis (1) Infection of right hand Status: Acute (2) Hypothyroidism Status: Chronic (3) Fibromyalgia Status: Chronic (4) GERD (gastroesophageal reflux disease) Status: Chronic (5) Depression Status: Chronic DS: Summary Hospital Course: Patient started on vancomycin IV cultures of wound did grow staph and ID wants patient on 2 weeks levaquin [address] Hughes . Will also give PO pain med thru [facility] pharmacy and diflucan . Blood cultures negative. - Time Spent with Patient Total time spent providing and/or coordinating discharge services: Less than 30 minutes - Quality: VTE Deep Vein Thrombosis/Pulmonary Embolism Present on Admission: No Exam Vital signs: Vital Signs 02/12/18 20:00 02/13/18 00:00 02/13/18 08:00 Temperature 98.3 F 97.9 F 97.5 F L Pulse Rate 77 69 66 Respiratory Rate 20 20 20 Blood Pressure 110/82 119/60 110/72 Pulse Oximetry 94 L 94 L 95 Intake & Output 02/12/18 02/13/18 02/13/18 18:59 06:59 18:59 Intake Total 1301 / 1301 742.5 / 742.5 250 / 250 Balance 1301 / 1301 742.5 / 742.5 250 / 250 Weight 111.7 kg Intake: IV 520 / 520 262.5 / 262.5 250 / 250 Vancomycin Inj 1,000 MG In NS 250 / 250 250 / 250 Inj 250 ML @ 250 mls/hr IV.SIG Q8H KEVIN Rx#:[id number] Vancomycin Inj 1,250 MG In NS 270 / 270 262.5 / 262.5 Inj 250 ML @ 250 mls/hr IV.SIG Q12H KEVIN Rx#:[id number] Oral 781 / 781 480 / 480 Other: # Voids 5 2 Date of Last Bowel Movement 02/10/18 # Bowel Movements 0 0 Narrative: Physical examination GENERAL: Patient is a well-nourished, well-developed female, awake and alert , not in respiratory distress. SKIN: Cool and dry. No generalized rash, no ecchymoses and no evidence of embolic lesions. HEAD: Atraumatic. Normocephalic. No temporal wasting, or tenderness. EYES: [place] conjunctiva. No petechia or hemorrhage. Pupils equal, round and reactive to light. Extraocular movements full and intact. No scleral icterus. No injection or drainage. EARS, NOSE AND THROAT: Nose without bleeding or purulent nasal discharge. No sinus tenderness. Mucous membranes pink and moist. No oral lesions noted. No exudate. No oral thrush. NECK: Trachea midline. Supple and not tender, no meningeal signs CARDIOVASCULAR: Regular rate and rhythm. No murmurs, rubs or gallops heard RESPIRATORY: Clear to auscultation. Breath sounds equal bilaterally. No rales , wheezing or rhonchi ABDOMEN: Soft, non-tender, nondistended. Bowel sounds present and normoactive. No guarding. No rebound. No organomegaly. EXTREMITIES: No clubbing, cyanosis, or edema. Intact and dry dressing to the R hand. No lymphangitis noted in her R forearm or upper arm. Incision well healed in elbow area. Good ROM joints. Some swelling of fingers R hand exposed , not red. No calf tenderness. NEUROLOGICAL: Awake and alert. Cranial nerves grossly intact. Motor grossly within normal limits. PSYCHIATRIC: Normal affect, calm and cooperative. LINE: No evidence of infection Results Procedures completed during hospitalization: surgical flexor tendon mri Labs on day of discharge: Labs from last 24 hours 02/13/18 02/13/18 02/13/18 09:45 05:40 05:40 CBC w Diff Auto diff final WBC 7.7 RBC 3.84 L Hgb 12.2 Hct 34.2 L MCV 89.0 D MCH 31.7 MCHC 35.6 RDW 12.6 Plt Count 213 MPV 7.8 Neut % (Auto) 67.1 Lymph % (Auto) 24.0 [place] % (Auto) 6.6 Eos % (Auto) 1.6 Baso % (Auto) 0.7 Neut # (Auto) 5.1 Lymph # (Auto) 1.9 [place] # (Auto) 0.5 Eos # (Auto) 0.1 Baso # (Auto) 0.1 WBC Differential . Differential Comment . Sodium 141 Potassium 3.5 Chloride 106 Carbon Dioxide 28.4 Anion Gap 7 BUN 6 L Creatinine 0.66 Estimated GFR Greater than 89 Random Glucose 82 Calcium 8.0 L Vancomycin Trough 12.7 H Preliminary micro results at discharge 02/10/18 16:00 Aerobic Blood Culture - Preliminary Blood - Peripheral No growth in 3 days Anaerobic Blood Culture - Preliminary No growth in 3 days 02/10/18 16:05 Aerobic Blood Culture - Preliminary Blood - Peripheral No growth in 3 days Anaerobic Blood Culture - Preliminary No growth in 3 days - Impressions ITS Impressions Hand MRI 02/10/18 15:55 CONCLUSION: 1. 8 x 4 mm fluid collection adjacent to the palmar aspect of the flexor tendon sheath of the third digit at the level of the MCP joint. 2. Mild edema about the palm of the second through fourth digit, expected postsurgical findings. Discharge Plan - Discharge Disposition Patient Disposition: 01 Discharge Home - Discharge Condition Condition: Good - Discharge Order Discharge Orders: Discharge Order (Routine); Ordered 02/13/18 Ordered By: Pramod Pedroza - Discharge Details Anticipated Discharge Date: 02/13/18 - Physicians Team Primary Care Provider: Nidia Edward Attending Provider: Nidia Edward Other Providers: Radha Hughes MD ; Vandana Sweeney MD ; Ivett Garcia MD
[2018-02-13 17:04] VITALS: PULSE 70
[2018-02-13 17:05] VITALS: BP 151/86; TEMP 98.1; O2SAT 93
--- NOTE | 2018-02-13 20:10 | P.PNOP ---
Subjective Interval history: Patient reports persistent pain right hand. No worsening paresthesias. Patient wants to be discharged. Physical Exam Vital signs: Vital Signs 02/13/18 00:00 02/13/18 08:00 02/13/18 12:00 Temperature 97.9 F 97.5 F L 97.6 F Pulse Rate 69 66 70 Respiratory Rate 20 20 20 Blood Pressure 119/60 110/72 99/62 L Pulse Oximetry 94 L 95 92 L 02/13/18 16:00 Temperature 98.1 F Pulse Rate 70 Respiratory Rate 20 Blood Pressure 151/86 H Pulse Oximetry 93 L Intake & Output 02/13/18 02/13/18 02/14/18 06:59 18:59 06:59 Intake Total 742.5 / 742.5 2150 Balance 742.5 / 742.5 2150 Weight 111.7 kg Intake: IV 262.5 / 262.5 250 / 250 Vancomycin Inj 1,000 MG In NS 250 / 250 Inj 250 ML @ 250 mls/hr IV.SIG Q8H KEVIN Rx#:[id number] Vancomycin Inj 1,250 MG In NS 262.5 / 262.5 Inj 250 ML @ 250 mls/hr IV.SIG Q12H KEVIN Rx#:[id number] Oral 480 / 480 1901 / 1901 Other: # Voids 2 8 # Bowel Movements 0 - Routine Extremities Exam Comments: Dressing changed. Sutures in place without any drainage. Mild erythema. Moderate swelling in hand. Pain with ROM fingers, sitlt m/u/r, 2 sec capillary refill to fingers Results - Labs CBC & Chem 7: 02/13/18 05:40 02/13/18 05:40 Laboratory Results - last 24 hr 02/13/18 02/13/18 02/13/18 05:40 05:40 09:45 CBC w Diff Auto diff final WBC 7.7 RBC 3.84 L Hgb 12.2 Hct 34.2 L MCV 89.0 D MCH 31.7 MCHC 35.6 RDW 12.6 Plt Count 213 MPV 7.8 Neut % (Auto) 67.1 Lymph % (Auto) 24.0 [place] % (Auto) 6.6 Eos % (Auto) 1.6 Baso % (Auto) 0.7 Neut # (Auto) 5.1 Lymph # (Auto) 1.9 [place] # (Auto) 0.5 Eos # (Auto) 0.1 Baso # (Auto) 0.1 WBC Differential . Differential Comment . Sodium 141 Potassium 3.5 Chloride 106 Carbon Dioxide 28.4 Anion Gap 7 BUN 6 L Creatinine 0.66 Estimated GFR Greater than 89 Random Glucose 82 Calcium 8.0 L Vancomycin Trough 12.7 H Microbiology 02/10/18 16:00 Blood - Peripheral Aerobic Blood Culture - Preliminary No growth in 3 days 02/10/18 16:00 Blood - Peripheral Anaerobic Blood Culture - Preliminary No growth in 3 days 02/10/18 16:05 Blood - Peripheral Aerobic Blood Culture - Preliminary No growth in 3 days 02/10/18 16:05 Blood - Peripheral Anaerobic Blood Culture - Preliminary No growth in 3 days 02/10/18 21:10 Abscess - Hand Gram Stain - Final 02/10/18 21:10 Abscess - Hand Wound Culture - Final Staphylococcus aureus 02/10/18 21:10 Abscess - Hand Gram Stain - Final 02/10/18 21:10 Abscess - Hand Wound Culture - Final Staphylococcus aureus - Procedures surgical flexor tendon mri Assessment and Plan - Assessment and Plan 57yF approximately 4 weeks status post right cubital tunnel release and right middle finger trigger release POD3 s/p I&D right middle finger with cultures + staph -Elevate hand with gentle ROM -Ab and discharge plan per ID -followup in office 02/17 and followup with ID next week as well as therapy
== END 2018-02-13 19:34 | disposition home or self-care (01) ==
LOC: PHED 15:34 → PHEDA 18:48 → PH3 22:59
PROVIDERS: ADMIT Legal Medicine; ATTEND Legal Medicine